=== PATIENT | male | born 2000 | race Caucasian/White ===

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

== ENCOUNTER 2022-11-08 03:30 | Emergency (ER) | payer OTHER, MEDICAID ==
[~2022-11-08] VITALS: Ht 172.7 cm; Wt 81.8 kg
[~2022-11-08 03:30] MED LIST: INSLISPI SC; INSU100I4 SC; OLAN5TAB2 PO; QUET50TA PO
[2022-11-08] MEDS ORDERED: METOCLOPRAMIDE HCL 5MG/ml INJ 2ml VIAL IV ONE (04:00)
[2022-11-08] MEDS ORDERED: MORPHINE SULFATE 4 MG/ML SYR/VIAL IV ONE ×2 (04:00→06:45)
[2022-11-08] MEDS ORDERED: diphenhdrAMINE HCL 50 MG/1 ML VL IV ONE (04:00)
[2022-11-08 04:26] LABS: Basophils # (auto) 0.1 10 ^3/uL (0-0.2); Basophils % (auto) 0.3 % (0.0-2.0); Eosinophils # (auto) 0 10 ^3/uL (0-0.8); Hematocrit 48.2 % (41.0-53.0); Lymphocytes # (auto) 1.1 10 ^3/uL (0.4-5.4); Lymphocytes % (auto) 5.2 % (10.0-50.0); Mean Corpuscular Hemoglobin 29.2 pg (28.0-32.0); Mean Corpuscular Hgb Conc. 33.2 g/dL (32.0-36.0); Mean Corpuscular Volume 87.9 fL (80.0-100.0); Monocytes # (auto) 1.5 10 ^3/uL (0-1.3); Monocytes % (auto) 7.3 % (0.0-12.0); Neutrophils # (auto) 17.6 10 ^3/uL (1.6-8.6); Neutrophils % (auto) 87.2 % (37.0-80.0); Red Blood Cells 5.48 10^6/uL (4.5-5.90); Red Cell Distribution Width 13.5 % (11.8-14.3); White Blood Cell 20.2 10^3/uL (4.4-10.8)
[2022-11-08 04:30] VITALS: RESP 19; O2SAT 97
[2022-11-08 04:42] LABS: Alanine Aminotransferase 43 U/L (7-40); Alkaline Phosphatase 100 U/L (46-116); Anion Gap 13 (5-15); BUN/Creatinine Ratio 11.3 (10.0-20.0); Blood Urea Nitrogen 13 mg/dL (9-23); Calcium 10.1 mg/dL (8.7-10.4); Carbon Dioxide 24 mmol/L (20-30); Chloride 103 mmol/L (98-107); Glucose 148 mg/dL (74-106); Lipase 33 U/L (12-53); Potassium 3.7 mmol/L (3.5-5.1); Sodium 140 mmol/L (136-145)
[2022-11-08 04:43] LABS: Albumin 5.3 g/dL (3.2-4.8); Aspartate Aminotransferase 29 U/L (13-40); Bilirubin, Total 0.6 mg/dL (0.2-1.0); Total Protein 8.3 g/dL (5.7-8.2)
[2022-11-08] MEDS ORDERED: ONDANSETRON HCL 4 MG/2 ML VIAL IV ONE (06:45)
[2022-11-08] MEDS ORDERED: PIPERACILLIN-TAZO 4.5GM 100 ML IV ONE (06:45)
[2022-11-08] MEDS ORDERED: SODIUM CHLORIDE 0.9% 1,000 ML IV ONE ×2 (06:45)
[2022-11-08 07:04] LABS: Base Excess -0.7 mmol/L (-2.0-2.0)
[2022-11-08 08:00] VITALS: PULSE 63; RESP 13; O2SAT 98
[2022-11-08 10:09] VITALS: BP 120/48; PULSE 78; RESP 16; TEMP 98; O2SAT 98
== END 2022-11-08 10:32 | disposition short-term general hospital (02) ==
LOC: EDBD 03:30 → ER 03:30
DX: K37 Unspecified appendicitis (principal); E11.9 Type 2 diabetes mellitus without complications; E87.3 Alkalosis; R10.84 Generalized abdominal pain; R11.2 Nausea with vomiting, unspecified; Z79.4 Long term (current) use of insulin; Z79.899 Other long term (current) drug therapy
CPT/HCPCS: 36415; 36600; 74150; 80053; 82805; 83690; 85025; 96365; 96366; 96375; 96376; 99285; J2270; J2405; J2543; J2765

== ENCOUNTER 2023-01-12 13:01 | Emergency (ER) | payer MEDICAID ==
[~2023-01-12] VITALS: Ht 172.7 cm; Wt 79.5 kg
[2023-01-12] MEDS ORDERED: SODIUM CHLORIDE 0.9% 1,000 ML IVB ONE (13:15)
[2023-01-12] MEDS ORDERED: MORPHINE SULFATE 4 MG/ML SYR/VIAL IV ONE (13:15)
[2023-01-12] MEDS ORDERED: PROCHLORPERAZINE EDISYLATE 5 MG/ML 2ML VIAL IV ONE (13:15)
[2023-01-12] MEDS ORDERED: PANTOPRAZOLE 40 MG/10 ML VIAL INJ IV ONE (13:15)
[2023-01-12 13:55] LABS: Basophils # (auto) 0 10 ^3/uL (0-0.2); Basophils % (auto) 0.2 % (0.0-2.0); Eosinophils # (auto) 0 10 ^3/uL (0-0.8)
[2023-01-12 13:57] LABS: Hematocrit 55.3 % (41.0-53.0); Lymphocytes # (auto) 1.6 10 ^3/uL (0.4-5.4); Lymphocytes % (auto) 6.5 % (10.0-50.0); Mean Corpuscular Hgb Conc. 32.6 g/dL (32.0-36.0); Monocytes # (auto) 1.3 10 ^3/uL (0-1.3); Monocytes % (auto) 5.4 % (0.0-12.0); Neutrophils % (auto) 87.9 % (37.0-80.0); Red Blood Cells 6.21 10^6/uL (4.5-5.90); Red Cell Distribution Width 13.2 % (11.8-14.3); White Blood Cell 23.9 10^3/uL (4.4-10.8)
[2023-01-12 14:16] LABS: Alanine Aminotransferase 22 U/L (7-40); Albumin 5.9 g/dL (3.2-4.8); Alkaline Phosphatase 87 U/L (46-116); Anion Gap 23 (5-15); Aspartate Aminotransferase 24 U/L (13-40); Blood Urea Nitrogen 14 mg/dL (9-23); Carbon Dioxide 17 mmol/L (20-30); Chloride 95 mmol/L (98-107); Glucose 181 mg/dL (74-106); Lipase 28 U/L (12-53); Potassium 4.2 mmol/L (3.5-5.1); Sodium 135 mmol/L (136-145); Total Protein 9.3 g/dL (5.7-8.2)
[2023-01-12] MEDS ORDERED: PIPERACILLIN-TAZOB 3.375GM 100 ML IV ONE (15:15)
[2023-01-12 15:33] LABS: Base Excess -10.8 mmol/L (-2.0-2.0)
[2023-01-12 17:32] LABS: COVID19 ANTIGEN SOFIA FIA NEGATIVE (NEGATIVE)
[2023-01-12 17:39] VITALS: BP 135/79; PULSE 73; RESP 19; TEMP 97.2; O2SAT 100
== END 2023-01-12 18:00 | disposition short-term general hospital (02) ==
LOC: EDBD 13:01 → ER 13:01
DX: K36 Other appendicitis (principal); R10.30 Lower abdominal pain, unspecified; R11.2 Nausea with vomiting, unspecified; E11.9 Type 2 diabetes mellitus without complications; F15.90 Other stimulant use, unspecified, uncomplicated; Z87.891 Personal history of nicotine dependence; Z79.899 Other long term (current) drug therapy; Z20.822 Contact with and (suspected) exposure to COVID-19
CPT/HCPCS: 36415; 36600; 74177; 80053; 82805; 83690; 85025; 87426; 96361; 96365; 96375; 99285; C9113; J0780; J2270; J2543; J7030; Q9967

== ENCOUNTER 2024-03-16 07:09 | Emergency (ER) | payer MEDICAID ==
[~2024-03-16] VITALS: Ht 175.3 cm; Wt 100.0 kg
--- NOTE | 2024-03-16 07:25 | ED.PDOC ---
GI ASSESSMENT HPI Comments 23-year-old male with PMHx Cannabinoid Hyperemesis Syndrome brought in by EMS presents with a chief complaint of abdominal pain, diaphoresis, nausea, and vomiting. Patient states that his pain is localized diffusely, nonradiating, rates his pain a 10/10, and describes as aching. Patient was given 8mg Zofran en route. Patient endorses smoking marijuana recently. Patient is also a Diabetic. No other symptoms or modifying factors present at this time. Chief Complaint: Abdominal Pain Time Seen by MD: 07:16 Primary Care Provider: Marcel Reviewed Notes: Medications, Allergies Allergies: Coded Allergies: NO KNOWN ALLERGIES (Unverified , 02/03/21) Home Meds Reported Medications Olanzapine (Zyprexa) 5 Mg Tab, 5 MG PO HS 11/12/21 Insulin Lispro (Human) (Humalog) 100 Unit/Ml Inj, SC 11/12/21 Quetiapine Fumerate (Seroquel) 50 Mg Tab, 75 MG PO HS 11/12/21 Insulin Lispro (Humalog Kwikpen) 100 Unit/Ml Inj, SC 11/12/21 Information Source: Patient Mode of Arrival: EMS Timing: Hours Duration: Since onset Prehospital treatment: Treatment (8mg Zofran) Quality: Aching Vomitus: Food Particles Severity: Severe Recent: None Recent Hx of: None Pain Location: Diffuse Past Medical History PAST MEDICAL HISTORY: DM Surgical History: Denies all surgeries Family History Family History: Unknown Social History Smoker: Other Alcohol: Occasionally Drugs: Marijuana Lives In: Home Constitutional: reports: diaphoresis; denies: chills, fatigue, fever, malaise, sweats, weakness, others EENTM: denies: blurred vision, double vision, ear bleeding, ear discharge, ear drainage, ear pain, ear ringing, eye pain, eye redness, hearing loss, mouth pain, mouth swelling, nasal discharge, nose bleeding, nose congestion, nose pain, photophobia, tearing, throat pain, throat swelling, voice changes, others Respiratory: denies: cough, hemoptysis, orthopnea, SOB at rest, shortness of breath, SOB with excertion, stridor, wheezing, others Cardiovascular: denies: chest pain, dizzy spells, diaphoresis, Dyspnea on exertion, edema, irregular heart beat, left arm pain, lightheadedness, palpitations, PND, syncope, others Gastrointestinal: reports: abdominal pain, nausea, vomiting; denies: abdomen distended, blood streaked bowels, constipated, diarrhea, dysphagia, difficulty swallowing, hematemesis, melena, poor appetite, poor fluid intake, rectal bleeding, rectal pain, others Genitourinary: denies: burning, dysuria, flank pain, frequency, hematuria, incontinence, penile discharge, penile sore, pain, testicle pain, testicle swelling, urgency, others Neurological: denies: dizziness, fainting, headache, left sided numbness, left sided weakness, numbness, paresthesia, pre-existing deficit, right sided numbness, right sided weakness, seizure, speech problems, tingling, tremors, weakness, others Musculoskeletal: denies: back pain, gout, joint pain, joint swelling, muscle pain, muscle stiffness, neck pain, others Integumetry: denies: bruises, change in color, change in hair/nails, dryness, laceration, lesions, lumps, rash, wounds, others Allergic/Immunocompromised: denies: Difficulty Healing, Frequent Infections, Hives, Itching, others Hematologic/Lymphatic: denies: anemia, blood clots, easy bleeding, easy bruising, swollen glands, others Endocrine: denies: excessive hunger, excessive sweating, excessive thirst, excessive urination, flushing, intolerance to cold, intolerance to heat, unexplained weight gain, unexplained weight loss, others Psychiatric: denies: anxiety, bipolar disorder, depression, hopeless, panic disorder, schizophrenia, sleepless, suicidal, others All Other Systems: Reviewed and Negative Physical Exam General Appearance: Normal, Severe Distress HEENT: Normal ENT Inspection, Pharynx Normal, TMs Normal Neck: Full Range of Motion, Non-Tender, Normal, Normal Inspection Respiratory: Chest Non-Tender, Lungs Clear, No Accessory Muscle Use, No Respiratory Distress, Normal Breath Sounds Cardiovascular: No Edema, No JVD, No Murmur, No Gallop, Normal Peripheral Pulses, Regular Rate/Rhythm Breast Exam: Deferred Gastrointestinal: Diffuse, No Pulsatile Mass, Normal Bowel Sounds, Tenderness Genitalia: Deferred Pelvic: Deferred Rectal: Deferred Extremities: No calf tenderness, Normal capillary refill, Normal inspection, Normal range of motion, Non-tender, No pedal edema Musculoskeletal : Apperance: Normal Neurologic: Alert, department helper II-XII nml as Tested, No Motor Deficits, Normal Affect, Normal Mood, No Sensory Deficits Cerebellar Function: Normal Reflexes: Normal Skin: Dry, Normal Color, Warm Lymphatic: No Adenopathy Was a procedure done? Was a procedure done?: No GI differential Dx Differential Diagnosis: Other Other Differential Diagnosis DKA, electrolyte disturbance, cannabinoid hyperemesis syndrome, hyperglycemia, gastroenteritis X-Ray, Labs, Meds, VS Vital Signs Date Time Temp Pulse Resp B/P (MAP) Pulse Ox O2 Delivery O2 Flow Rate FiO2 03/16/24 09:46 98.0 60 14 161/93 (115) 99 98.0 03/16/24 07:45 98.3 61 20 151/94 (113) 97 98.3 03/16/24 07:14 98.1 18 96 147/89 (108) 62 98.1 03/16/24 07:14 Room Air* 0 21 03/16/24 07:14 98.1 62 18 147/89 (108) 96 Lab Test 03/16/24 07:36 Range/Units White Blood Count 12.7 H 4.4-10.8 10^3/uL Red Blood Count 5.87 4.5-5.90 10^6/uL Hemoglobin 17.3 13.5-17.5 g/dL Hematocrit 51.3 41.0-53.0 % Mean Corpuscular Volume 87.5 80.0-100.0 fL Mean Corpuscular Hemoglobin 29.5 28.0-32.0 pg Mean Corpuscular Hemoglobin Concent 33.7 32.0-36.0 g/dL Red Cell Distribution Width 13.4 11.8-14.3 % Platelet Count 263 140-450 10^3/uL Mean Platelet Volume 10.1 6.9-10.8 fL Neutrophils (%) (Auto) 81.1 H 37.0-80.0 % Lymphocytes (%) (Auto) 10.7 10.0-50.0 % Monocytes (%) (Auto) 7.8 0.0-12.0 % Eosinophils (%) (Auto) 0.1 0.0-7.0 % Basophils (%) (Auto) 0.3 0.0-2.0 % Neutrophils # (Auto) 10.3 H 1.6-8.6 10 ^3/uL Lymphocytes # (Auto) 1.4 0.4-5.4 10 ^3/uL Monocytes # (Auto) 1.0 0-1.3 10 ^3/uL Eosinophils # (Auto) 0 0-0.8 10 ^3/uL Basophils # (Auto) 0 0-0.2 10 ^3/uL Nucleated Red Blood Cells 0.1 % Sodium Level 135 L 136-145 mmol/L Potassium Level 4.4 3.5-5.1 mmol/L Chloride Level 101 98-107 mmol/L Carbon Dioxide Level 20 20-31 mmol/L Anion Gap 14 5-15 Blood Urea Nitrogen 13 9-23 mg/dL Creatinine 1.23 0.700-1.30 mg/dL Glomerular Filtration Rate Calc 86 >90 mL/min BUN/Creatinine Ratio 10.6 10.0-20.0 Serum Glucose 272 H 74-106 mg/dL Calcium Level 10.5 H 8.7-10.4 mg/dL Total Bilirubin 0.7 0.2-1.0 mg/dL Aspartate Amino Transferase (AST) 27 13-40 U/L Alanine Aminotransferase (ALT) 33 7-40 U/L Alkaline Phosphatase 88 46-116 U/L Total Protein 8.4 H 5.7-8.2 g/dL Albumin 5.5 H 3.2-4.8 g/dL Lipase 29 12-53 U/L Beta-Hydroxybutyric Acid 0.758 H < 0.4 mmol/L Current Medications Medications (Trade) Dose Ordered Sig/Osvaldo Route Start Time Stop Time Status Last Admin Sodium Chloride 1,000 ml @ 1,000 mls/hr Q1H ONCE IVB 03/16/24 07:30 03/16/24 08:29 DC 03/16/24 07:37 Haloperidol Lactate (Haldol) 5 mg ONCE ONCE IM 03/16/24 07:30 03/16/24 07:31 DC 03/16/24 07:45 23-year-old male presents here status post can avoid hyperemesis syndrome. He was driving on my initial evaluation. And was diaphoretic. I have given him 1 L of normal saline and Haldol in the ER. Blood work was done which demonstrates no WBC count largely normal CMP except for a creatinine of 1.23 and elevated glucose of 272. Slight elevation in beta hydroxybutyrate of 0.758. At this time strongly advised patient to stop using marijuana. Advised patient to return back to the ER if symptoms worsen or persist. On re-evaluation at 10:45 a.m. patient is no longer vomiting no longer diaphoretic and feeling much better. Time of 1ST Reevaluation: 07:46 Reevaluation 1ST: Unchanged Time of 2ND Reevaluation: 10:43 Reevaluation 2ND: Improved Patient Education/Counseling: Diagnosis, Treatment, Prognosis Family Education/Counseling: Diagnosis, Treatment, Prognosis Departure 1 Departure Time of Disposition: 10:46 Impression: Primary Impression: Cannabinoid hyperemesis syndrome Additional Impressions: Hyperglycemia Dehydration Disposition: 01 HOME / SELF CARE / HOMELESS Condition: Fair Additional Instructions: Follow up with the primary care physician in 2-3 days. Return to the ER if symptoms worsen or persist. Discharged With: Self Critical Care Note Critical Care Time?: No Stability Stability form required: No I personally scribed for KRISH BECK MD ([email or web address]) on 03/16/24 at 07:25. Electronically submitted by Helio Zabala ([email or web address]). KRISH BECK MD Mar 16, 2024 07:25
[2024-03-16] MEDS: SODIUM CHLORIDE 0.9% 1,000 ML IVB ONE (07:37)
[2024-03-16] MEDS: HALOPERIDOL LACTATE 5 MG/ML INJ VIAL IM ONE (07:45)
[2024-03-16 08:15] LABS: Basophils # (auto) 0 10 ^3/uL (0-0.2); Basophils % (auto) 0.3 % (0.0-2.0); Eosinophils # (auto) 0 10 ^3/uL (0-0.8); Eosinophils % (auto) 0.1 % (0.0-7.0); Hematocrit 51.3 % (41.0-53.0); Hemoglobin 17.3 g/dL (13.5-17.5); Lymphocytes # (auto) 1.4 10 ^3/uL (0.4-5.4); Lymphocytes % (auto) 10.7 % (10.0-50.0); Mean Corpuscular Hemoglobin 29.5 pg (28.0-32.0); Mean Corpuscular Hgb Conc. 33.7 g/dL (32.0-36.0); Mean Corpuscular Volume 87.5 fL (80.0-100.0); Monocytes % (auto) 7.8 % (0.0-12.0); Neutrophils # (auto) 10.3 10 ^3/uL (1.6-8.6); Neutrophils % (auto) 81.1 % (37.0-80.0); Nucleated Red Blood Cells % 0.1 %; Platelet Count (auto) 263 10^3/uL (140-450); Red Blood Cells 5.87 10^6/uL (4.5-5.90); Red Cell Distribution Width 13.4 % (11.8-14.3); White Blood Cell 12.7 10^3/uL (4.4-10.8)
[2024-03-16 08:19] LABS: Alanine Aminotransferase 33 U/L (7-40); Alkaline Phosphatase 88 U/L (46-116); Anion Gap 14 (5-15); Aspartate Aminotransferase 27 U/L (13-40); BUN/Creatinine Ratio 10.6 (10.0-20.0); Blood Urea Nitrogen 13 mg/dL (9-23); Carbon Dioxide 20 mmol/L (20-31); Chloride 101 mmol/L (98-107); Potassium 4.4 mmol/L (3.5-5.1)
[2024-03-16 08:20] LABS: Bilirubin, Total 0.7 mg/dL (0.2-1.0)
[2024-03-16 08:32] LABS: Albumin 5.5 g/dL (3.2-4.8); Calcium 10.5 mg/dL (8.7-10.4); Glucose 272 mg/dL (74-106); Sodium 135 mmol/L (136-145); Total Protein 8.4 g/dL (5.7-8.2)
[2024-03-16 09:02] LABS: Lipase 29 U/L (12-53)
[2024-03-16] MEDS: SODIUM CHLORIDE 0.9% 1,000 ML IV ONE (10:54)
[2024-03-16 11:07] VITALS: BP 150/64; PULSE 63; RESP 18; TEMP 98.1; O2SAT 98
== END 2024-03-16 11:52 | disposition home or self-care (01) ==
LOC: EDBD 07:09 → ER 07:09
DX: F12.90 Cannabis use, unspecified, uncomplicated (principal); E11.65 Type 2 diabetes mellitus with hyperglycemia; E86.0 Dehydration; Z79.899 Other long term (current) drug therapy
CPT/HCPCS: 36415; 80053; 82010; 83690; 85025; 96360; 96361; 96372; 99283; J1630; J7030

== ENCOUNTER 2024-10-19 07:34 | Inpatient (IN) | payer MEDICAID ==
[~2024-10-19] VITALS: Ht 172.7 cm; Wt 83.5 kg
[2024-10-19] VITALS (7 sets, daily range): BP systolic 111–153; BP diastolic 52–85; PULSE 50–90; RESP 8–96; TEMP 97.8–98.8; O2SAT 94–97
--- NOTE | 2024-10-19 08:00 | ED.PDOC ---
GI ASSESSMENT HPI Comments 23 y.o male with PMHx of DM, presents to the ED via EMS for a chief complaint of nausea and vomiting that started this morning around 0600. Patient mentions trying thc gummies last night and has a hx of marijuana use with prior visit to the ER for marijuana induced nausea and vomiting. Patient denies any abdominal pain, fever, chills, hematemesis Time Seen by MD: 17:50 Primary Care Provider: Marcel Reviewed Notes: Nurses Notes, [employer] Scientist Notes, Medications, Allergies Allergies: Coded Allergies: NO KNOWN ALLERGIES (Unverified , 02/03/21) Home Meds Reported Medications Olanzapine (Zyprexa) 5 Mg Tab, 5 MG PO HS 11/12/21 Insulin Lispro (Human) (Humalog) 100 Unit/Ml Inj, SC 11/12/21 Quetiapine Fumerate (Seroquel) 50 Mg Tab, 75 MG PO HS 11/12/21 Insulin Lispro (Humalog Kwikpen) 100 Unit/Ml Inj, SC 11/12/21 Information Source: Patient, Emergency Med Personnel Mode of Arrival: EMS Timing: Hours Duration: Since onset Quality: None Vomitus: Bilious Stool: Normal Severity: Moderate Recent: Other Recent Hx of: None Pain Location: None Modifying Factors: Nothing Associated sign and symptoms: Nausea, Vomiting Past Medical History PAST MEDICAL HISTORY: DM Surgical History: Denies all surgeries Family History Family History: Unknown Social History Smoker: Non-Smoker, Other Alcohol: Occasionally Drugs: Marijuana Lives In: Home Constitutional: denies: chills, diaphoresis, fatigue, fever, malaise, sweats, weakness, others EENTM: denies: blurred vision, double vision, ear bleeding, ear discharge, ear drainage, ear pain, ear ringing, eye pain, eye redness, hearing loss, mouth pain, mouth swelling, nasal discharge, nose bleeding, nose congestion, nose pain, photophobia, tearing, throat pain, throat swelling, voice changes, others Respiratory: denies: cough, hemoptysis, orthopnea, SOB at rest, shortness of breath, SOB with excertion, stridor, wheezing, others Cardiovascular: denies: chest pain, dizzy spells, diaphoresis, Dyspnea on exertion, edema, irregular heart beat, left arm pain, lightheadedness, palpitations, PND, syncope, others Gastrointestinal: reports: nausea, vomiting; denies: abdomen distended, abdominal pain, blood streaked bowels, constipated, diarrhea, dysphagia, difficulty swallowing, hematemesis, melena, poor appetite, poor fluid intake, rectal bleeding, rectal pain, others Genitourinary: denies: burning, dysuria, flank pain, frequency, hematuria, incontinence, penile discharge, penile sore, pain, testicle pain, testicle swelling, urgency, others Neurological: denies: dizziness, fainting, headache, left sided numbness, left sided weakness, numbness, paresthesia, pre-existing deficit, right sided numbness, right sided weakness, seizure, speech problems, tingling, tremors, weakness, others Musculoskeletal: denies: back pain, gout, joint pain, joint swelling, muscle pain, muscle stiffness, neck pain, others Integumetry: denies: bruises, change in color, change in hair/nails, dryness, laceration, lesions, lumps, rash, wounds, others Allergic/Immunocompromised: denies: Difficulty Healing, Frequent Infections, Hives, Itching, others Hematologic/Lymphatic: denies: anemia, blood clots, easy bleeding, easy bruising, swollen glands, others Endocrine: denies: excessive hunger, excessive sweating, excessive thirst, excessive urination, flushing, intolerance to cold, intolerance to heat, unexplained weight gain, unexplained weight loss, others Psychiatric: denies: anxiety, bipolar disorder, depression, hopeless, panic disorder, schizophrenia, sleepless, suicidal, others All Other Systems: Reviewed and Negative Physical Exam General Appearance: Moderate Distress HEENT: Normal ENT Inspection, Pharynx Normal, TMs Normal Neck: Full Range of Motion, Non-Tender, Normal, Normal Inspection Respiratory: Chest Non-Tender, Lungs Clear, No Accessory Muscle Use, No Respiratory Distress, Normal Breath Sounds Cardiovascular: No Edema, No JVD, No Murmur, No Gallop, Normal Peripheral Pulses, Regular Rate/Rhythm Breast Exam: Deferred Gastrointestinal: No Organomegaly, Non Tender, No Pulsatile Mass, Normal Bowel Sounds, Soft Genitalia: Deferred Pelvic: Deferred Rectal: Deferred Extremities: No calf tenderness, Normal capillary refill, Normal inspection, Normal range of motion, Non-tender, No pedal edema Musculoskeletal : Apperance: Normal Neurologic: Alert, animal care giver II-XII nml as Tested, No Motor Deficits, Normal Affect, Normal Mood, No Sensory Deficits Cerebellar Function: Normal Reflexes: Normal Skin: Dry, Normal Color, Warm Peripheral Pulses: 3+ Radial (R), 3+ Radial (L) Lymphatic: No Adenopathy Was a procedure done? Was a procedure done?: No GI differential Dx Differential Diagnosis: Constipation, Diverticular disease, Esophagitis, Gastritis/PUD, Gastroenteritis, Dehydration, Diabetes/ DKA, Drug toxicity, Electrolyte Imbalance, Viral X-Ray, Labs, Meds, VS Vital Signs Date Time Temp Pulse Resp B/P (MAP) Pulse Ox O2 Delivery O2 Flow Rate FiO2 10/19/24 12:00 Room Air* 0 21 10/19/24 11:45 98.1 57 16 146/78 (100) 98 98.1 10/19/24 10:35 98.1 43 16 143/84 (103) 99 98.1 10/19/24 09:53 84 22 96 Room Air* 0 21 10/19/24 09:44 75 18 147/68 10/19/24 08:10 98.7 75 18 147/68 98 98.7 Lab Test 10/19/24 15:57 10/19/24 13:56 10/19/24 11:47 10/19/24 08:11 Range/Units POC Glucose 176 H 230 H 226 H 70-106 mg/dl White Blood Count 18.1 H 4.4-10.8 10^3/uL Red Blood Count 5.66 4.5-5.90 10^6/uL Hemoglobin 16.8 13.5-17.5 g/dL Hematocrit 48.7 41.0-53.0 % Mean Corpuscular Volume 86.1 80.0-100.0 fL Mean Corpuscular Hemoglobin 29.8 28.0-32.0 pg Mean Corpuscular Hemoglobin Concent 34.6 32.0-36.0 g/dL Red Cell Distribution Width 12.7 11.8-14.3 % Platelet Count 261 140-450 10^3/uL Mean Platelet Volume 9.5 6.9-10.8 fL Neutrophils (%) (Auto) 79.8 37.0-80.0 % Lymphocytes (%) (Auto) 10.7 10.0-50.0 % Monocytes (%) (Auto) 8.9 0.0-12.0 % Eosinophils (%) (Auto) 0.2 0.0-7.0 % Basophils (%) (Auto) 0.4 0.0-2.0 % Neutrophils # (Auto) 14.4 H 1.6-8.6 10 ^3/uL Lymphocytes # (Auto) 1.9 0.4-5.4 10 ^3/uL Monocytes # (Auto) 1.6 H 0-1.3 10 ^3/uL Eosinophils # (Auto) 0 0-0.8 10 ^3/uL Basophils # (Auto) 0.1 0-0.2 10 ^3/uL Nucleated Red Blood Cells 0.0 % Sodium Level 139 136-145 mmol/L Potassium Level 3.5 3.5-5.1 mmol/L Chloride Level 101 98-107 mmol/L Carbon Dioxide Level 22 20-31 mmol/L Anion Gap 16 H 5-15 Blood Urea Nitrogen 11 9-23 mg/dL Creatinine 1.25 0.700-1.30 mg/dL Glomerular Filtration Rate Calc 84 >90 mL/min BUN/Creatinine Ratio 8.8 L 10.0-20.0 Serum Glucose 220 H 74-106 mg/dL Calcium Level 10.3 8.7-10.4 mg/dL Beta-Hydroxybutyric Acid 0.590 H < 0.4 mmol/L Current Medications Medications (Trade) Dose Ordered Sig/Osvaldo Route Start Time Stop Time Status Last Admin Sodium Chloride 1,000 ml @ 1,000 mls/hr Q1H ONCE IV 10/19/24 08:00 10/19/24 08:59 DC 10/19/24 09:45 Sodium Chloride 1,000 ml @ 150 mls/hr Q6H40M ONCE IV 10/19/24 08:00 10/19/24 14:39 DC 10/19/24 09:45 Haloperidol Lactate (Haldol) 5 mg ONCE ONCE IM 10/19/24 08:00 10/19/24 08:01 DC 10/19/24 09:43 Ondansetron HCl (Zofran) 4 mg ONCE ONCE IV 10/19/24 08:00 10/19/24 08:01 DC 10/19/24 09:45 Morphine Sulfate 4 mg ONCE ONCE IV 10/19/24 08:00 10/19/24 08:01 DC 10/19/24 09:44 Sodium Chloride 1,000 ml @ 1,000 mls/hr Q1H ONCE IV 10/19/24 10:15 10/19/24 11:14 DC 10/19/24 11:45 Insulin Human (Reg)/Sodium Chloride 100 ml @ 0.5 mls/hr Q24H IV 10/19/24 10:15 10/19/24 12:09 Diagnostic Test (Pha) (Accu-Chek Comfort Curve T) 1 strip Q90MIN 10/19/24 10:30 10/19/24 16:33 Potassium Chloride (Klor-Con Tablet) 20 meq ONCE ONCE PO 10/19/24 11:15 10/19/24 11:16 DC 10/19/24 14:41 Patient alert. Complaining of nausea vomiting. History of diabetes. Vitals stable. Establish intravenous access. Was given fluids Was given morphine. Was given Zofran. History of anxiety. Was given Haldol. He does use marijuana gummies. Explained to the patient. Continue monitoring. Rod as not responded when more than 6 hours. Patient will be admitted in this hospital by our hospitalist. [facility] approved inpatient admission [id number]. Time of 1ST Reevaluation: 07:57 Reevaluation 1ST: Unchanged Patient Education/Counseling: Diagnosis, Treatment, Prognosis Family Education/Counseling: No Family Present SEPSIS Sepsis Screen Physician Orders Urinalysis (10/19/24 07:55) Insulin Drip 100 Unit/100ml (Myxredlin 1 (10/19/24 10:15) Glucose Blood (Accu-Chek Comfort Curve T (10/19/24 10:30) D/C All Diabetic Medications (10/19/24 10:06) Insulin Drip Protocol (10/19/24 10:06) Dextrose 50% Syringe (10/19/24 10:15) Sodium Chloride 0.9% (10/19/24 16:45) Vital Signs Date Time Temp Pulse Resp B/P (MAP) Pulse Ox O2 Delivery O2 Flow Rate FiO2 10/19/24 12:00 Room Air* 0 21 10/19/24 11:45 98.1 57 16 146/78 (100) 98 98.1 10/19/24 10:35 98.1 43 16 143/84 (103) 99 98.1 10/19/24 09:53 84 22 96 Room Air* 0 21 10/19/24 09:44 75 18 147/68 10/19/24 08:10 98.7 75 18 147/68 98 98.7 Laboratory Tests Test 10/19/24 08:11 White Blood Count 18.1 10^3/uL (4.4-10.8) H Medications Medications Dose Ordered Sig/Osvaldo Route Start Time Stop Time Status Last Admin Dose Admin Diagnostic Test (Pha) 1 strip Q90MIN 10/19/24 10:30 10/19/24 16:33 Haloperidol Lactate 5 mg ONCE ONCE IM 10/19/24 08:00 10/19/24 08:01 DC 10/19/24 09:43 Insulin Human (Reg)/Sodium Chloride 100 ml @ 0.5 mls/hr Q24H IV 10/19/24 10:15 10/19/24 12:09 Morphine Sulfate 4 mg ONCE ONCE IV 10/19/24 08:00 10/19/24 08:01 DC 10/19/24 09:44 Ondansetron HCl 4 mg ONCE ONCE IV 10/19/24 08:00 10/19/24 08:01 DC 10/19/24 09:45 Potassium Chloride 20 meq ONCE ONCE PO 10/19/24 11:15 10/19/24 11:16 DC 10/19/24 14:41 Sodium Chloride 1,000 ml @ 150 mls/hr Q6H40M ONCE IV 10/19/24 08:00 10/19/24 14:39 DC 10/19/24 09:45 Sodium Chloride 1,000 ml @ 1,000 mls/hr Q1H ONCE IV 10/19/24 08:00 10/19/24 08:59 DC 10/19/24 09:45 Sodium Chloride 1,000 ml @ 1,000 mls/hr Q1H ONCE IV 10/19/24 10:15 10/19/24 11:14 DC 10/19/24 11:45 Departure 1 Departure Time of Disposition: 08:02 Impression: Primary Impression: DKA (diabetic ketoacidosis) Qualified Codes: E13.10 - Other specified diabetes mellitus with ketoacidosis without coma Additional Impressions: Cannabinoid hyperemesis syndrome Intractable nausea and vomiting Disposition: ADMITTED INPATIENT Admit to: Med Surg Condition: Guarded Critical Care Note Critical Care Time?: No Stability Stability form required: No I personally scribed for SYLVAIN CLARK MD ([email or web address]) on 10/19/24 at 08:00. Electronically submitted by Melinda Kraft ([facility]). SYLVAIN CLARK MD Oct 19, 2024 08:00
[2024-10-19 08:50] LABS: Hematocrit 48.7 % (41.0-53.0); Hemoglobin 16.8 g/dL (13.5-17.5); Mean Corpuscular Hemoglobin 29.8 pg (28.0-32.0); Mean Corpuscular Volume 86.1 fL (80.0-100.0); Nucleated Red Blood Cells % 0.0 %
[2024-10-19 09:13] LABS: Chloride 101 mmol/L (98-107); Potassium 3.5 mmol/L (3.5-5.1); Sodium 139 mmol/L (136-145)
[2024-10-19 09:14] LABS: Anion Gap 16 (5-15); Calcium 10.3 mg/dL (8.7-10.4); Carbon Dioxide 22 mmol/L (20-31)
[2024-10-19 09:19] LABS: BUN/Creatinine Ratio 8.8 (10.0-20.0); Blood Urea Nitrogen 11 mg/dL (9-23)
[2024-10-19 09:20] LABS: Glucose 220 mg/dL (74-106)
[2024-10-19] MEDS: HALOPERIDOL LACTATE 5 MG/ML INJ VIAL IM ONE (09:43)
[2024-10-19] MEDS: MORPHINE SULFATE 4 MG/ML SYR/VIAL IV ONE (09:44)
[2024-10-19] MEDS: SODIUM CHLORIDE 0.9% 1,000 ML IV ONE ×5 (09:45→18:15)
[2024-10-19] MEDS: ONDANSETRON HCL 4 MG/2 ML VIAL IV ONE (09:45)
[2024-10-19] MEDS ORDERED: DEXTROSE (50%) 50ML SYRG IV PRN (10:15)
[2024-10-19] MEDS: ACCU-CHEK COMFORT CURVE STRIP VI SCH (11:50)
[2024-10-19] MEDS: INSULIN DRIP 100 UNIT/100ML 100 ML IV SCH (12:09)
[2024-10-19] MEDS: POTASSIUM CHL 20 Meq TABLET PO ONE (14:41)
--- NOTE | 2024-10-19 17:39 | DVHHP2 ---
Admitting Diagnosis: Nausea and vomiting History of Present Illness 23 y.o male with PMHx of DM, presents to the ED via EMS for a chief complaint of nausea and vomiting that started this morning around 0600. Patient mentions trying thc gummies last night and has a hx of marijuana use with prior visit to the ER for marijuana induced nausea and vomiting. Patient denies any abdominal pain, fever, chills, hematemesis PAST MEDICAL HISTORY: DM Surgical History: Denies all surgeries Family History Family History: Unknown Social History Smoker: Non-Smoker, Other Alcohol: Occasionally Drugs: Marijuana Lives In: Home Patient Family History: Patient reports no known family medical history. Allergies: Coded Allergies: NO KNOWN ALLERGIES (Unverified , 02/03/21) Home Meds Reported Medications Olanzapine (Zyprexa) 5 Mg Tab, 5 MG PO HS 11/12/21 Insulin Lispro (Human) (Humalog) 100 Unit/Ml Inj, SC 11/12/21 Quetiapine Fumerate (Seroquel) 50 Mg Tab, 75 MG PO HS 11/12/21 Insulin Lispro (Humalog Kwikpen) 100 Unit/Ml Inj, SC 11/12/21 Current Medications Current Medications Medications (Trade) Dose Ordered Sig/Osvaldo Route PRN Reason Start Time Stop Time Status Last Admin Insulin Human (Reg)/Sodium Chloride 100 ml @ 0.5 mls/hr Q24H IV 10/19/24 10:15 10/19/24 12:09 Diagnostic Test (Pha) (Accu-Chek Comfort Curve T) 1 strip Q90MIN 10/19/24 10:30 10/19/24 16:33 Dextrose 50 ml PRN PRN IV BG LESS Than 70 AND CALL MD 10/19/24 10:15 Vital Signs Vital Signs Date Time Temp Pulse Resp B/P (MAP) Pulse Ox O2 Delivery O2 Flow Rate FiO2 10/19/24 16:00 63 17 154/94 (114) 97 10/19/24 12:30 98.1 98.1 10/19/24 12:00 Room Air* 0 21 Physical Exam Generally-23 years old male, well nourished well developed. Resting in bed. No apparent distress HEENT-atraumatic normocephalic Heart-sinus tachycardic Lungs decreased breath sounds bilaterally Abdomen soft nontender nondistended Musculoskeletal-no edema cyanosis Neuro-asleep, arousable to verbal, oriented to person place nine. Strength and sensation intact SEPSIS Sepsis Screen Date sepsis recognized/suspect: Oct 19, 2024 Time Sepsis recognized/suspect: 114 Recent Procedure: No On Antibiotic Therapy: No Respiratory Rate >20: No Heart Rate >90: No Temp<36 C (96.8 F) or >38.3 C: No SBP <90 or MAP <65 mmHG: No New Acute Mental Status Change: No Is the patient on CPAP, BIPAP,: No Physician Orders Urinalysis (10/19/24 07:55) Insulin Drip 100 Unit/100ml (Myxredlin 1 (10/19/24 10:15) Glucose Blood (Accu-Chek Comfort Curve T (10/19/24 10:30) D/C All Diabetic Medications (10/19/24 10:06) Insulin Drip Protocol (10/19/24 10:06) Dextrose 50% Syringe (10/19/24 10:15) Sodium Chloride 0.9% (10/19/24 16:45) Vital Signs Date Time Temp Pulse Resp B/P (MAP) Pulse Ox O2 Delivery O2 Flow Rate FiO2 10/19/24 16:00 63 17 154/94 (114) 97 10/19/24 15:30 52 20 155/89 (111) 97 10/19/24 15:00 48 19 149/80 (103) 98 10/19/24 14:30 48 19 149/80 (103) 97 10/19/24 14:00 50 16 144/85 (104) 98 10/19/24 13:30 52 20 144/85 (104) 98 10/19/24 13:00 51 21 146/78 (100) 98 10/19/24 12:30 98.1 57 16 146/78 (100) 98 98.1 10/19/24 12:00 Room Air* 0 21 10/19/24 12:00 98.1 57 16 146/78 (100) 98 98.1 10/19/24 11:45 98.1 57 16 146/78 (100) 98 98.1 10/19/24 10:35 98.1 43 16 143/84 (103) 99 98.1 10/19/24 09:53 84 22 96 Room Air* 0 21 10/19/24 09:44 75 18 147/68 8/30/25 08:10 98.7 75 18 147/68 98 98.7 Laboratory Tests Test 10/19/24 08:11 White Blood Count 18.1 10^3/uL (4.4-10.8) H Medications Medications Dose Ordered Sig/Osvaldo Route Start Time Stop Time Status Last Admin Dose Admin Diagnostic Test (Pha) 1 strip Q90MIN 10/19/24 10:30 10/19/24 16:33 Haloperidol Lactate 5 mg ONCE ONCE IM 10/19/24 08:00 10/19/24 08:01 DC 10/19/24 09:43 Insulin Human (Reg)/Sodium Chloride 100 ml @ 0.5 mls/hr Q24H IV 10/19/24 10:15 10/19/24 12:09 Morphine Sulfate 4 mg ONCE ONCE IV 10/19/24 08:00 10/19/24 08:01 DC 10/19/24 09:44 Ondansetron HCl 4 mg ONCE ONCE IV 10/19/24 08:00 10/19/24 08:01 DC 10/19/24 09:45 Potassium Chloride 20 meq ONCE ONCE PO 10/19/24 11:15 10/19/24 11:16 DC 10/19/24 14:41 Sodium Chloride 1,000 ml @ 150 mls/hr Q6H40M ONCE IV 10/19/24 08:00 10/19/24 14:39 DC 10/19/24 09:45 Sodium Chloride 1,000 ml @ 1,000 mls/hr Q1H ONCE IV 10/19/24 08:00 10/19/24 08:59 DC 10/19/24 09:45 Sodium Chloride 1,000 ml @ 1,000 mls/hr Q1H ONCE IV 10/19/24 10:15 10/19/24 11:14 DC 10/19/24 11:45 Sodium Chloride 1,000 ml @ 1,000 mls/hr Q1H ONCE IV 10/19/24 16:45 10/19/24 17:44 10/19/24 16:55 Results Labs Test 10/19/24 16:36 10/19/24 12:00 10/19/24 08:11 Range/Units POC Glucose 176 H 70-106 mg/dl White Blood Count 18.1 H 4.4-10.8 10^3/uL Red Blood Count 5.66 4.5-5.90 10^6/uL Hemoglobin 16.8 13.5-17.5 g/dL Hematocrit 48.7 41.0-53.0 % Mean Corpuscular Volume 86.1 80.0-100.0 fL Mean Corpuscular Hemoglobin 29.8 28.0-32.0 pg Mean Corpuscular Hemoglobin Concent 34.6 32.0-36.0 g/dL Red Cell Distribution Width 12.7 11.8-14.3 % Platelet Count 261 140-450 10^3/uL Mean Platelet Volume 9.5 6.9-10.8 fL Neutrophils (%) (Auto) 79.8 37.0-80.0 % Lymphocytes (%) (Auto) 10.7 10.0-50.0 % Monocytes (%) (Auto) 8.9 0.0-12.0 % Eosinophils (%) (Auto) 0.2 0.0-7.0 % Basophils (%) (Auto) 0.4 0.0-2.0 % Neutrophils # (Auto) 14.4 H 1.6-8.6 10 ^3/uL Lymphocytes # (Auto) 1.9 0.4-5.4 10 ^3/uL Monocytes # (Auto) 1.6 H 0-1.3 10 ^3/uL Eosinophils # (Auto) 0 0-0.8 10 ^3/uL Basophils # (Auto) 0.1 0-0.2 10 ^3/uL Nucleated Red Blood Cells 0.0 % Sodium Level 139 136-145 mmol/L Potassium Level 3.5 3.5-5.1 mmol/L Chloride Level 101 98-107 mmol/L Carbon Dioxide Level 22 20-31 mmol/L Anion Gap 16 H 5-15 Blood Urea Nitrogen 11 9-23 mg/dL Creatinine 1.25 0.700-1.30 mg/dL Glomerular Filtration Rate Calc 84 >90 mL/min BUN/Creatinine Ratio 8.8 L 10.0-20.0 Serum Glucose 220 H 74-106 mg/dL Calcium Level 10.3 8.7-10.4 mg/dL Beta-Hydroxybutyric Acid 0.590 H < 0.4 mmol/L Primary Diagnosis Cannabinoid hyperemesis Type 1 diabetes ketoacidosis Plan IV fluids Antiemetic Pain control Insulin drip in ED for anion gap and hyperglycemia and elevated beta hydroxybutyrate Patient insulin pump is number function. Recommended the patient to have family bring insulin pump to resume when anion gap is closed recommended to avoid thc use full code lovenox for dvt ppx no gi ppx needed low carb diet Plan discussed with: Patient Problems List: (1) Cannabinoid hyperemesis syndrome Status: Acute (2) Intractable nausea and vomiting Status: Acute (3) DKA (diabetic ketoacidosis) Status: Acute Date of Service: Oct 19, 2024 Billing Provider: KENA DOWNING MD Common Visit Codes: [id number] CARE 30-74 MIN KENA DOWNING MD Oct 19, 2024 17:39
[2024-10-19 17:44] LABS: Urine Budding Yeast MODERATE /hpf (None Seen); Urine Protein, UAD 1+ (Negative)
[2024-10-19] MEDS ORDERED: ACETAMINOPHEN 325 MG TAB PO PRN (17:45)
[2024-10-19] MEDS ORDERED: DOCUSATE SOD 100 MG CAP PO PRN (17:45)
[2024-10-19 19:08] LABS: Chloride 106 mmol/L (98-107); Potassium 4.5 mmol/L (3.5-5.1); Sodium 141 mmol/L (136-145)
[2024-10-19 19:09] LABS: Anion Gap 12 (5-15); Carbon Dioxide 23 mmol/L (20-31)
[2024-10-19 19:10] LABS: Calcium 9.0 mg/dL (8.7-10.4)
[2024-10-19 19:15] LABS: BUN/Creatinine Ratio 7.8 (10.0-20.0); Blood Urea Nitrogen 7 mg/dL (9-23); Glucose 151 mg/dL (74-106)
[2024-10-19] MEDS: SODIUM CHLOR 0.9% PF (SALINE LOCK) 10ML VIAL/SYR IV SCH (22:00)
[2024-10-19] MEDS: ONDANSETRON HCL 4 MG/2 ML VIAL IV PRN (23:15)
[2024-10-19 23:54] LABS: Chloride 105 mmol/L (98-107); Potassium 3.9 mmol/L (3.5-5.1); Sodium 139 mmol/L (136-145)
[2024-10-19 23:55] LABS: Anion Gap 13 (5-15); Calcium 9.3 mg/dL (8.7-10.4); Carbon Dioxide 21 mmol/L (20-31)
[2024-10-20] VITALS (33 sets, daily range): BP systolic 100–165; BP diastolic 54–105; PULSE 46–100; RESP 8–24; TEMP 97.9–98.5; O2SAT 93–100
[2024-10-20] LABS: BUN/Creatinine Ratio 6.8 (10.0-20.0)
[2024-10-20 00:02] LABS: Blood Urea Nitrogen 6 mg/dL (9-23); Glucose 163 mg/dL (74-106)
[2024-10-20] MEDS: HYDROcodone-ACET 5/325MG TAB PO PRN (02:28)
[2024-10-20 06:58] LABS: Hematocrit 42.7 % (41.0-53.0); Hemoglobin 14.8 g/dL (13.5-17.5); Mean Corpuscular Hemoglobin 29.8 pg (28.0-32.0); Mean Corpuscular Volume 86.2 fL (80.0-100.0); Nucleated Red Blood Cells % 0.0 %
[2024-10-20 07:07] LABS: Anion Gap 9 (5-15); Carbon Dioxide 23 mmol/L (20-31); Chloride 107 mmol/L (98-107); Potassium 3.7 mmol/L (3.5-5.1); Sodium 139 mmol/L (136-145)
[2024-10-20 07:08] LABS: Calcium 9.1 mg/dL (8.7-10.4)
[2024-10-20 07:13] LABS: BUN/Creatinine Ratio 8.3 (10.0-20.0)
[2024-10-20 07:32] LABS: Blood Urea Nitrogen 7 mg/dL (9-23); Glucose 150 mg/dL (74-106)
[2024-10-20] MEDS: SODIUM CHLORIDE 0.9% 1,000 ML IV SCH (09:00)
[2024-10-20] MEDS: ACCU-CHEK COMFORT CURVE STRIP VI SCH ×2 (10:00→17:23)
[2024-10-20] MEDS: INSULIN LANTUS (GLARGINE) 1 /0.01ml (100units/ml) SC ONE ×2 (10:15→14:34)
[2024-10-20] MEDS ORDERED: InsuLIN REG 1unit/0.01ml Soln (100units/ml) SC SCH ×2 (10:15→12:00)
[2024-10-20] MEDS: PANTOPRAZOLE 40 MG/10 ML VIAL INJ IV SCH (10:48)
[2024-10-20] MEDS: ENOXAPARIN SOD 40 MG/0.4 ML SYRINGE SC SCH (10:48)
[2024-10-20 12:02] LABS: Sodium 141 mmol/L (136-145)
[2024-10-20 12:03] LABS: Anion Gap 13 (5-15); Calcium 9.3 mg/dL (8.7-10.4); Carbon Dioxide 20 mmol/L (20-31)
[2024-10-20 12:05] LABS: Chloride 108 mmol/L (98-107); Potassium 2.9 mmol/L (3.5-5.1)
[2024-10-20 12:08] LABS: BUN/Creatinine Ratio 6.5 (10.0-20.0); Blood Urea Nitrogen 6 mg/dL (9-23); Glucose 157 mg/dL (74-106)
--- NOTE | 2024-10-20 13:13 | DVHPN2 ---
Assessment/Plan Assessment/Plan Subjective History of Present Illness Ferdinand Randolph, a 23-year-old male with type 1 diabetes, presented to the ED with nausea and vomiting after consuming a THC gummy. He has a history of m arijuana use and cyclic vomiting syndrome (CHS). The patient reports experiencing nausea and vomiting, which he believes may be related to a CHS episode. He notes that haloperidol has been helpful in managing these symptoms in the past. Ferdinand also mentions having "a little diarrhea, but not bad," occurring twice. He denies any recent travel or exposure to individuals with similar symptoms, though he mentions someone in his household had a cough recently. Regarding his diabetes management, Ferdinand uses an Omnipod insulin pump at home. He does not take any long-acting insulin. He last saw his manager validation, whose last name he believes is Swapnil, a few months ago. The patient reports occasional use of cocaine, occurring every few months. He also uses nicotine through vaping and regularly consumes marijuana. Ferdinand denies use of heroin, meth, or alcohol. Objective Physical Examination General: Patient is awake and alert. Urinary: Patient reports feeling like he has to urinate but is unable to do so. abdomen soft nontender no LE edema s1 s2 rrr MMM Laboratory, Imaging, and Diagnostic Test Results - WBC: 18 (elevated) - Glucose: Elevated (specific value not provided) - Bicarbonate: 22 - Anion gap: 16 - Urine: - BHP: Positive - Ketones: Present - Blood: - WBC: 4 - RBC: 8000 Assessment & Plan Assessment - Type 1 Diabetes Mellitus - Diabetic Ketoacidosis resolved - starvation ketosis - Nausea and Vomiting - Cannabinoid Hyperemesis Syndrome - Substance Use Disorder Plan - Discontinue insulin drip - Start Lantus 17 units and Lispro 3 units with sliding scale - Continue IV fluids - Replete potassium - Initiate clear liquid diet, advance to diabetic diet as tolerated - Administer PRN Haldol for nausea and vomiting - Discontinue Lovenox - Transfer from ICU to regular floor - Discharge anticipated for tomorrow Diet: Diabetic diet DVT PPX: Ambulatory GI PPX: Not indicated. Code Status: Full Code. Plan discussed with: Patient My Orders Orders - KELL FRANK MD Procedure Category Date Status Time Insulin Lantus PHA 10/20/24 Transmitted (Glargine) (Lantus) 13:15 Insulin Lantus PHA 10/21/24 Transmitted (Glargine) (Lantus) 07:00 Insulin Lispro PHA 10/20/24 Transmitted (Human) (Humalog) 17:00 Insulin Lispro PHA 10/20/24 Transmitted (Human) (Humalog) 17:00 Glucose Blood PHA 10/20/24 Transmitted (Accu-Chek Comfort 17:00 Hydroxyzine Oral PHA 10/20/24 Transmitted (Vistaril Oral) 13:15 Haloperidol Lactate PHA 10/20/24 Transmitted Injection (Haldol) 13:15 Transfer Orders XFER 10/20/24 Transmitted 13:06 Date of Service: Oct 20, 2024 Billing Provider: KELL FRANK MD Common Visit Codes: [id number] INP/OBS CARE(HIGH) KELL FRANK MD Oct 20, 2024 13:13
[2024-10-20] MEDS: INSULIN LISPRO (HUMAN) 100 UNITS/ML ML SC SCH ×2 (14:35→17:00)
[2024-10-20] MEDS: HALOPERIDOL LACTATE 5 MG/ML INJ VIAL IM PRN (14:37)
[2024-10-20] MEDS: hydrOXYzine HCL 10 MG TAB PO PRN (17:19)
[2024-10-20 18:21] LABS: Sodium 140 mmol/L (136-145)
[2024-10-20 18:22] LABS: Anion Gap 11 (5-15); Calcium 9.0 mg/dL (8.7-10.4); Carbon Dioxide 21 mmol/L (20-31)
[2024-10-20 18:28] LABS: BUN/Creatinine Ratio 6.0 (10.0-20.0); Blood Urea Nitrogen < 5 mg/dL (9-23); Chloride 108 mmol/L (98-107); Glucose 128 mg/dL (74-106); Potassium 3.3 mmol/L (3.5-5.1)
[2024-10-21 01:00] VITALS: BP 124/65; PULSE 77; RESP 16; TEMP 97.3; O2SAT 97
[2024-10-21 05:00] VITALS: BP 118/67; PULSE 80; RESP 16; TEMP 97.6; O2SAT 97
[2024-10-21] MEDS: INSULIN LANTUS (GLARGINE) 1 /0.01ml (100units/ml) SC SCH (06:07)
[2024-10-21 06:41] LABS: Hematocrit 45.4 % (41.0-53.0); Hemoglobin 15.8 g/dL (13.5-17.5); Mean Corpuscular Hemoglobin 29.9 pg (28.0-32.0); Mean Corpuscular Volume 86.2 fL (80.0-100.0); Nucleated Red Blood Cells % 0.1 %
[2024-10-21 06:45] LABS: Anion Gap 11 (5-15); Carbon Dioxide 22 mmol/L (20-31); Chloride 105 mmol/L (98-107); Sodium 138 mmol/L (136-145)
[2024-10-21 06:46] LABS: Calcium 9.3 mg/dL (8.7-10.4)
[2024-10-21 06:51] LABS: BUN/Creatinine Ratio 8.8 (10.0-20.0)
[2024-10-21 06:56] LABS: Blood Urea Nitrogen 8 mg/dL (9-23); Glucose 176 mg/dL (74-106); Potassium 3.5 mmol/L (3.5-5.1)
[2024-10-21 08:00] VITALS: PULSE 73; RESP 16; O2SAT 99
[2024-10-21 09:00] VITALS: BP 137/89; PULSE 73; RESP 16; TEMP 97.9; O2SAT 99
[2024-10-21 13:00] VITALS: BP 127/79; PULSE 87; RESP 16; TEMP 98.7; O2SAT 100
[2024-10-21] MEDS ORDERED: ZOFR4T PO (13:29)
[2024-10-21] MEDS ORDERED: METO5TAB67 PO (13:33)
--- NOTE | 2024-10-21 13:34 | DVHDS2 ---
Discharge Summary Date of Admission Oct 19, 2024 at 17:39 Date of Discharge: Oct 21, 2024 Labs/Diagnostic Data: Laboratory Results Test 10/21/24 11:54 10/21/24 05:05 10/19/24 12:00 10/19/24 08:11 POC Glucose 215 mg/dl (70-106) White Blood Count 10.9 10^3/uL (4.4-10.8) Red Blood Count 5.27 10^6/uL (4.5-5.90) Hemoglobin 15.8 g/dL (13.5-17.5) Hematocrit 45.4 % (41.0-53.0) Mean Corpuscular Volume 86.2 fL (80.0-100.0) Mean Corpuscular Hemoglobin 29.9 pg (28.0-32.0) Mean Corpuscular Hemoglobin Concent 34.7 g/dL (32.0-36.0) Red Cell Distribution Width 12.8 % (11.8-14.3) Platelet Count 192 10^3/uL (140-450) Mean Platelet Volume 9.6 fL (6.9-10.8) Neutrophils (%) (Auto) 66.3 % (37.0-80.0) Lymphocytes (%) (Auto) 23.9 % (10.0-50.0) Monocytes (%) (Auto) 8.3 % (0.0-12.0) Eosinophils (%) (Auto) 0.7 % (0.0-7.0) Basophils (%) (Auto) 0.8 % (0.0-2.0) Neutrophils # (Auto) 7.3 10 ^3/uL (1.6-8.6) Lymphocytes # (Auto) 2.6 10 ^3/uL (0.4-5.4) Monocytes # (Auto) 0.9 10 ^3/uL (0-1.3) Eosinophils # (Auto) 0.1 10 ^3/uL (0-0.8) Basophils # (Auto) 0.1 10 ^3/uL (0-0.2) Nucleated Red Blood Cells 0.1 % Sodium Level 138 mmol/L (136-145) Potassium Level 3.5 mmol/L (3.5-5.1) Chloride Level 105 mmol/L (98-107) Carbon Dioxide Level 22 mmol/L (20-31) Anion Gap 11 (5-15) Blood Urea Nitrogen 8 mg/dL (9-23) Creatinine 0.91 mg/dL (0.700-1.30) Glomerular Filtration Rate Calc 123 mL/min (>90) BUN/Creatinine Ratio 8.8 (10.0-20.0) Serum Glucose 176 mg/dL (74-106) Calcium Level 9.3 mg/dL (8.7-10.4) Urine Color Light-red (Yellow) Urine Clarity Ex.turbid (Clear) Urine pH 6.5 (5.0-9.0) Urine Specific [place] 1.025 (1.001-1.035) Urine Protein 1+ (Negative) Urine Ketones 3+ (Negative) Urine Blood 3+ /uL (Negative) Urine Nitrite Negative (Negative) Urine Bilirubin Negative (Negative) Urine Urobilinogen Normal mg/dL (Negative) Urine Leukocyte Esterase 1+ /uL (Negative) Urine RBC 8799 /hpf (0 - 3) Urine Microscopic WBC 4 /HPF (0-3) Urine Squamous Epithelial Cells None seen /hpf (<5) Urine Bacteria None seen /hpf (None Seen) Urine Yeast (Budding) Moderate /hpf (None Seen) Urine Glucose 4+ mg/dL (Normal) Beta-Hydroxybutyric Acid 0.590 mmol/L (< 0.4) Other Laboratory Tests 10/21/24 05:05 Brief Hx & Hospital Course: Ferdinand Randolph, a 23-year-old male with type 1 diabetes, presented to the ED with nausea and vomiting after consuming a THC gummy. He has a history of marijuana use and cyclic vomiting syndrome (CHS). The patient reports experiencing nausea and vomiting, which he believes may be related to a CHS episode. He notes that haloperidol has been helpful in managing these symptoms in the past. Ferdinand also mentions having "a little diarrhea, but not bad," occurring twice. He denies any recent travel or exposure to individuals with similar symptoms, though he mentions someone in his household had a cough recently. Regarding his diabetes management, Ferdinand uses an Omnipod insulin pump at home. He does not take any long-acting insulin. He last saw his commercial electrician, whose last name he believes is Swapnil, a few months ago. The patient reports occasional use of cocaine, occurring every few months. He also uses nicotine through vaping and regularly consumes marijuana. Ferdinand denies use of heroin, meth, or alcohol. 10/21: patient tolerating po, doing well. ready for dc as plan below diagnosis - Type 1 Diabetes Mellitus - Diabetic Ketoacidosis resolved - Cannabinoid Hyperemesis Syndrome possible - starvation ketosis - Nausea and Vomiting - Substance Use Disorder plan: -take reglan 3x/day as needed for nausea -recommend stop haldol for nausea (f/u with PCP to review medications) -abstain from THC -continue other home meds not mentioned above. Condition at Discharge: Stable Final Diagnosis/Problems List - Type 1 Diabetes Mellitus - Diabetic Ketoacidosis resolved - Cannabinoid Hyperemesis Syndrome possible - starvation ketosis - Nausea and Vomiting - Substance Use Disorder Discharge Disposition: Home Discharge Instruct/Medications Diet: Consistent carbohydrate Activity: No Restrictions, As Tolerated Follow Up/Referral: below Medications: below Scheduled Olanzapine (Zyprexa), 5 MG PO HS, (Reported) Quetiapine Fumerate (Seroquel), 75 MG PO HS, (Reported) Scheduled PRN Metoclopramide Hcl (Reglan), 5 MG PO TIDP PRN Miscellaneous Medications Insulin Lispro (Humalog Kwikpen), SC, (Reported) Insulin Lispro (Human) (Humalog), SC, (Reported) Discharge Statement: "Patient was advised to return to the ER or call 911 if any headaches, dizziness, shortness of breath, chest pain, abdominal pain, bleeding, fevers, or worsening of medical condition. Patient was counseled about treatment plan, medications, possible side effects, patientverbalized understanding. All questions were answered to the best of my ability. This discharge took greater then 30 minutes in planning, reviewing documentation, counseling the patient, and discussing with other team members." Date of Service: Oct 21, 2024 Billing Provider: HAI KHAN MD Common Visit Codes: [id number] DISCH DAY >30min HAI KHAN MD Oct 21, 2024 13:34
[2024-10-21 13:42] VITALS: BP 127/79; PULSE 87; RESP 16; TEMP 98.7; O2SAT 100
== END 2024-10-21 14:10 | disposition home or self-care (01) | DRG 420 ==
LOC: EDUNIT# 07:34 → EDBD 07:34 → ER 07:34 → OVERFLOW 17:39 → TELE-WESTW 10-20 16:23 → WEST WING 10-21 07:31
PROVIDERS: ADMIT Internal Medicine; ATTEND Internal Medicine
DX: E10.10 Type 1 diabetes mellitus with ketoacidosis without coma (principal); E88.89 Other specified metabolic disorders; F12.90 Cannabis use, unspecified, uncomplicated; Z79.4 Long term (current) use of insulin; T73.0XXA Starvation, initial encounter; Z79.899 Other long term (current) drug therapy
CPT/HCPCS: 36415; 80048; 81001; 82010; 82962; 85025; 87081; 87086; 96361; 96374; G0378; J1815; J2405; J2470

== ENCOUNTER 2024-11-29 08:13 | Inpatient (IN) | payer MEDICAID ==
[~2024-11-29] VITALS: Ht 172.7 cm; Wt 84.0 kg
[2024-11-29] VITALS (7 sets, daily range): BP systolic 105–121; BP diastolic 33–70; PULSE 64–97; RESP 9–20; TEMP 98.8; O2SAT 94–100
[~2024-11-29 08:13] MED LIST changes: +METO5TAB67 PO
[2024-11-29] MEDS: SODIUM CHLORIDE 0.9% 1,000 ML IVB ONE (09:05)
[2024-11-29] MEDS: ONDANSETRON HCL 4 MG/2 ML VIAL IV ONE ×2 (09:05→14:54)
[2024-11-29] MEDS: MORPHINE SULFATE 4 MG/ML SYR/VIAL IV ONE ×2 (09:06→14:00)
--- NOTE | 2024-11-29 09:18 | ED.PDOC ---
GI ASSESSMENT HPI Comments Ferdinand Acharya is a 24-year-old male, with past medical history of DM type 1 (on insulin pump 1U per 7 Carb). The patient came to the ED via EMS with chief complain of 7 hrs of abdominal pain that woke him up from his sleep. The pain is 10/10, cramp-like, diffused in the abdomen, no irradiates; associated with nausea and vomit #>7 of gastric content, no blood. The patient reports the pain did not improved with rest and the vomit did not subside, this prompt his visit to the ED. On further questioning, the patient reports his insulin pump has not been working properly for the last 2 days. His blood sugar at home are in average 150. Today, the level was above 300. Also, the patient reports marijuana use, last time was yesterday at night. The patient denies fever, chills, diarrhea, chest pain, or other symptoms. In the ED his BP: 147/80mmHg, HR: 99bpm, peripheral blood sugar: 373mg/dl. The patient will be further assessed. Chief Complaint: Abdominal Pain Time Seen by MD: 08:21 Primary Care Provider: Marcel Reviewed Notes: Nurses Notes, Medications, Allergies Allergies: Coded Allergies: NO KNOWN ALLERGIES (Unverified , 02/03/21) Home Meds Active Scripts Metoclopramide Hcl (Reglan) 5 Mg Tab, 5 MG PO TIDP PRN for 7 Days, #21 TAB 0 Refills Prov:HAI KHAN MD 10/21/24 Reported Medications Olanzapine (Zyprexa) 5 Mg Tab, 5 MG PO HS 11/12/21 Insulin Lispro (Human) (Humalog) 100 Unit/Ml Inj, SC 11/12/21 Quetiapine Fumerate (Seroquel) 50 Mg Tab, 75 MG PO HS 11/12/21 Insulin Lispro (Humalog Kwikpen) 100 Unit/Ml Inj, SC 11/12/21 Information Source: Patient Mode of Arrival: EMS Timing: Hours Duration: Since onset Quality: Cramping Vomitus: Food Particles Severity: Moderate Recent: Other (Marijuana use) Pain Location: Diffuse Associated sign and symptoms: Nausea, Vomiting Past Medical History PAST MEDICAL HISTORY: DM Past Medical History (Other): DM type 1 Surgical History: Appendectomy Family History Family History: Unknown Social History Smoker: Other (nicotine vape) Alcohol: Occasionally Drugs: Marijuana (Last use was last night) Lives In: Home Constitutional: denies: chills, diaphoresis, fatigue, fever, malaise, sweats, weakness, others EENTM: denies: blurred vision, double vision, ear bleeding, ear discharge, ear drainage, ear pain, ear ringing, eye pain, eye redness, hearing loss, mouth pain, mouth swelling, nasal discharge, nose bleeding, nose congestion, nose pain, photophobia, tearing, throat pain, throat swelling, voice changes, others Respiratory: denies: cough, hemoptysis, orthopnea, SOB at rest, shortness of breath, SOB with excertion, stridor, wheezing, others Cardiovascular: denies: chest pain, dizzy spells, diaphoresis, Dyspnea on exertion, edema, irregular heart beat, left arm pain, lightheadedness, palpitations, PND, syncope, others Gastrointestinal: reports: abdominal pain, nausea, vomiting; denies: abdomen distended, blood streaked bowels, constipated, diarrhea, dysphagia, difficulty swallowing, hematemesis, melena, poor appetite, poor fluid intake, rectal bleeding, rectal pain, others Genitourinary: denies: burning, dysuria, flank pain, frequency, hematuria, incontinence, penile discharge, penile sore, pain, testicle pain, testicle swelling, urgency, others Neurological: denies: dizziness, fainting, headache, left sided numbness, left sided weakness, numbness, paresthesia, pre-existing deficit, right sided numbness, right sided weakness, seizure, speech problems, tingling, tremors, weakness, others Musculoskeletal: denies: back pain, gout, joint pain, joint swelling, muscle pain, muscle stiffness, neck pain, others Integumetry: denies: bruises, change in color, change in hair/nails, dryness, laceration, lesions, lumps, rash, wounds, others Allergic/Immunocompromised: denies: Difficulty Healing, Frequent Infections, Hives, Itching, others Hematologic/Lymphatic: denies: anemia, blood clots, easy bleeding, easy bruising, swollen glands, others Endocrine: denies: excessive hunger, excessive sweating, excessive thirst, excessive urination, flushing, intolerance to cold, intolerance to heat, unexplained weight gain, unexplained weight loss, others Psychiatric: denies: anxiety, bipolar disorder, depression, hopeless, panic disorder, schizophrenia, sleepless, suicidal, others Physical Exam General Appearance: Moderate Distress HEENT: Normal ENT Inspection, Pharynx Normal, TMs Normal Neck: Full Range of Motion, Non-Tender, Normal, Normal Inspection Respiratory: Chest Non-Tender, Lungs Clear, No Accessory Muscle Use, No Respiratory Distress, Normal Breath Sounds Cardiovascular: No Edema, No JVD, No Murmur, No Gallop, Normal Peripheral Pulses, Regular Rate/Rhythm Breast Exam: Deferred Gastrointestinal: Soft, Tenderness (Inspection: insuline pump on left flank. No changes on skin. Auscultation: bowel sounds present, normo active. Difusely tender. ) Genitalia: Deferred Pelvic: Deferred Rectal: Deferred Extremities: No calf tenderness, Normal capillary refill, Normal inspection, Normal range of motion, Non-tender, No pedal edema Musculoskeletal : Apperance: Normal Neurologic: Alert, foundation coordinator II-XII nml as Tested, No Motor Deficits, Normal Affect, Normal Mood, No Sensory Deficits Cerebellar Function: Normal Reflexes: Normal Skin: Dry, Normal Color, Warm Lymphatic: No Adenopathy Was a procedure done? Was a procedure done?: No GI differential Dx Differential Diagnosis: Cholecystitis, Gastritis/PUD, Gastroenteritis, Electrolyte Imbalance, Other Other Differential Diagnosis #Cannabinoid hyperemesis #Pancreatitis #SBO, dehydration, electrolyte disturbance, DKA X-Ray, Labs, Meds, VS Vital Signs Date Time Temp Pulse Resp B/P (MAP) Pulse Ox O2 Delivery O2 Flow Rate FiO2 11/29/24 10:39 54 10 134/80 11/29/24 10:39 98.1 54 10 134/80 (98) 99 98.1 11/29/24 09:06 75 10 147/87 11/29/24 08:29 75 10 100 Room Air* 0 21 11/29/24 08:28 97.1 75 10 147/87 (107) 100 97.1 11/29/24 08:17 97.9 78 22 176/76 99 97.9 Lab Test 11/29/24 10:30 11/29/24 09:35 11/29/24 08:27 Range/Units Lactic Acid Level 4.0 *H 4.8 *H 0.4-2.0 mmol/L Beta-Hydroxybutyric Acid Pending White Blood Count 26.4 H 4.4-10.8 10^3/uL Red Blood Count 5.65 4.5-5.90 10^6/uL Hemoglobin 16.2 13.5-17.5 g/dL Hematocrit 49.1 41.0-53.0 % Mean Corpuscular Volume 86.8 80.0-100.0 fL Mean Corpuscular Hemoglobin 28.6 28.0-32.0 pg Mean Corpuscular Hemoglobin Concent 33.0 32.0-36.0 g/dL Red Cell Distribution Width 13.5 11.8-14.3 % Platelet Count 282 140-450 10^3/uL Mean Platelet Volume 9.5 6.9-10.8 fL Neutrophils (%) (Auto) 37.0-80.0 % Lymphocytes (%) (Auto) 10.0-50.0 % Monocytes (%) (Auto) 0.0-12.0 % Basophils (%) (Auto) 0.0-2.0 % Neutrophils # (Auto) 1.6-8.6 10 ^3/uL Lymphocytes # (Auto) 0.4-5.4 10 ^3/uL Monocytes # (Auto) 0-1.3 10 ^3/uL Differential Total Cells Counted 100.0 100 Neutrophils % (Manual) 82 H 37.0-80.0 Band Neutrophils % (Manual) 5 Lymphocytes % (Manual) 5 L 10.0-50.0 Monocytes % (Manual) 8 0-12 Eosinophils % (Manual) 0 0-7 Basophils % (Manual) 0 0.0-2.0 Metamyelocytes % (manual) 0 Myelocytes % (Manual) 0 Promyelocytes % (Manual) 0 Blast Cells % (Manual) 0 Reactive Lymphocytes 0 Platelet Estimate Adequate Sodium Level 138 136-145 mmol/L Potassium Level 5.2 H 3.5-5.1 mmol/L Chloride Level 103 98-107 mmol/L Carbon Dioxide Level 18 L 20-31 mmol/L Anion Gap 17 H 5-15 Blood Urea Nitrogen 13 9-23 mg/dL Creatinine 1.47 H 0.700-1.30 mg/dL Glomerular Filtration Rate Calc 69 >90 mL/min BUN/Creatinine Ratio 8.8 L 10.0-20.0 Serum Glucose 284 H 74-106 mg/dL Calcium Level 9.6 8.7-10.4 mg/dL Magnesium Level 1.7 1.6-2.6 mg/dL Total Bilirubin 1.1 H 0.2-1.0 mg/dL Aspartate Amino Transferase (AST) 17 13-40 U/L Alanine Aminotransferase (ALT) 17 7-40 U/L Alkaline Phosphatase 87 46-116 U/L Total Protein 8.3 H 5.7-8.2 g/dL Albumin 5.2 H 3.2-4.8 g/dL Lipase 26 12-53 U/L POC Glucose 260 H 70-106 mg/dl Current Medications Medications (Trade) Dose Ordered Sig/Osvaldo Route Start Time Stop Time Status Last Admin Ondansetron HCl (Zofran) 4 mg ONCE ONCE IV 11/29/24 09:00 11/29/24 09:01 DC 11/29/24 09:05 Sodium Chloride 1,000 ml @ 1,000 mls/hr Q1H ONCE IVB 11/29/24 09:00 11/29/24 09:59 DC 11/29/24 09:05 Morphine Sulfate 4 mg ONCE ONCE IV 11/29/24 09:00 11/29/24 09:01 DC 11/29/24 09:06 Sodium Chloride 1,000 ml @ 1,000 mls/hr Q1H ONCE IV 11/29/24 10:30 11/29/24 11:29 DC 11/29/24 10:38 X-Ray, Labs, Meds, VS Comment 10:15 The patient was re-assessed. The patient report improvement on nausea after IV fluids and Zofran and pain medication VS: 147/87mmHg, RR:10 [id number] CBC: WBC: 26.4x10e3/uL, Hb:16.2mg/dl CMP: K: 5.2mmol/l, Anion gap: 17, Lactic acid: 4.8, Glucose: 284 CT scan abdomen: No acute noncontrast CT abnormality in the abdomen or pelvis. Diffuse hepatic steatosis. Punctate nonobstructing left renal calculus. The patient will be transferred to [place] for further assessment and management. Dr. Beck: Patient seen and examined personally by myself along with resident Dr. Andrade. Patient has a 24-year-old male here with diffuse abdominal pain and active emesis. He has a known history of diabetes type 1 and has been insulin pump has not been working well. Immediate concern for DKA. At this time blood work has been done including a CBC CMP lactic acid. CMP also demonstrates significant other abnormalities. He is immediately been started on IV fluids at this time. He does have a leukocytosis of 26.4 but no other signs or symptoms of sepsis or SIRS. Does not have a fever he is not tachycardic in the ER. He does endorse history of cannabinoid use and states this does feel like cannabinoid hyperemesis syndrome. Labs also demonstrates significant other abnormalities. Patient appears significantly dehydrated. And potentially in DKA. CT abdomen pelvis however has been performed given his diffuse abdomen tenderness. No evidence of acute pathology except for diffuse hepatic steatosis and punctate nonobstructing left renal calculus. At this time his lactic acid has returned at 4.8. Despite 2 L normal saline lactic acid is still 4. Additional IV fluids has been written. At this time at 12:00 p.m. I spoke to Dr. Woods at [facility] who will be looking for a bed for him. Authorization #[id number]. Time of 1ST Reevaluation: 10:15 Reevaluation 1ST: Unchanged Patient Education/Counseling: Diagnosis, Treatment, Prognosis, Need For Follow Up Family Education/Counseling: No Family Present SEPSIS Sepsis Screen Date sepsis recognized/suspect: Nov 29, 2024 Time Sepsis recognized/suspect: 818 Recent Procedure: No On Antibiotic Therapy: No Respiratory Rate >20: Yes Heart Rate >90: No Temp<36 C (96.8 F) or >38.3 C: No SBP <90 or MAP <65 mmHG: No New Acute Mental Status Change: No Is the patient on CPAP, BIPAP,: No Physician Orders Urinalysis (11/29/24 08:55) Ct Ab Pel Wo Con-No Oral Or Iv (11/29/24 08:55) Beta-Hydroxybutyrate (11/29/24 10:16) Vital Signs Date Time Temp Pulse Resp B/P (MAP) Pulse Ox O2 Delivery O2 Flow Rate FiO2 11/29/24 10:39 54 10 134/80 11/29/24 10:39 98.1 54 10 134/80 (98) 99 98.1 11/29/24 09:06 75 10 147/87 11/29/24 08:29 75 10 100 Room Air* 0 21 11/29/24 08:28 97.1 75 10 147/87 (107) 100 97.1 11/29/24 08:17 97.9 78 22 176/76 99 97.9 Laboratory Tests Test 11/29/24 09:35 11/29/24 10:30 Lactic Acid Level 4.8 mmol/L (0.4-2.0) *H 4.0 mmol/L (0.4-2.0) *H White Blood Count 26.4 10^3/uL (4.4-10.8) H Medications Medications Dose Ordered Sig/Osvaldo Route Start Time Stop Time Status Last Admin Dose Admin Morphine Sulfate 4 mg ONCE ONCE IV 11/29/24 09:00 11/29/24 09:01 DC 11/29/24 09:06 Ondansetron HCl 4 mg ONCE ONCE IV 11/29/24 09:00 11/29/24 09:01 DC 11/29/24 09:05 Sodium Chloride 1,000 ml @ 1,000 mls/hr Q1H ONCE IV 11/29/24 10:30 11/29/24 11:29 DC 11/29/24 10:38 Sodium Chloride 1,000 ml @ 1,000 mls/hr Q1H ONCE IVB 11/29/24 09:00 11/29/24 09:59 DC 11/29/24 09:05 Departure 1 Departure Time of Disposition: 10:52 Impression: Primary Impression: Cannabinoid hyperemesis syndrome Additional Impressions: Hyperglycemia Uncontrolled diabetes mellitus Qualified Codes: E10.65 - Type 1 diabetes mellitus with hyperglycemia Dehydration Leukocytosis Qualified Codes: D72.829 - Elevated white blood cell count, unspecified Disposition: 02 [facility]ORT TERM [facility] Condition: Fair Comments Goals of care discussed with the patient > 35 min. Discussed plan of care with Dr. Beck Code status: Full code PCP: The patient does not recall name. Dr. Kraft (endocrinology) Plan discussed with: Patient, the patient agrees with the plan. Critical Care Note Critical Care Time?: Yes (1 hr-critical care time only) Critical care comment: I was asked to immediately to see the patient along with the resident given his significant abdominal pain. Immediate concern for DKA. Time spent speaking to nursing staff, speaking to resident, re-evaluating the patient, reviewing lab work, reassessing the patient. Speaking to [place] physician Stability Stability form required: Yes Stable for transfer: To designated facility ([facility]) Heart Score Heart Score: Heart Score Response (Comments) Value History N/A 0 EKG N/A 0 Age N/A 0 Risk Factors N/A 0 Troponin N/A 0 Total 0 ELZBIETA ANDRADE Nov 29, 2024 09:18 KRISH BECK MD Nov 29, 2024 10:29
[2024-11-29 09:51] LABS: Hematocrit 49.1 % (41.0-53.0); Hemoglobin 16.2 g/dL (13.5-17.5); Mean Corpuscular Hemoglobin 28.6 pg (28.0-32.0); Mean Corpuscular Volume 86.8 fL (80.0-100.0)
--- NOTE | 2024-11-29 09:59 | DVH ---
CLINICAL HISTORY: Abdomial pain TECHNIQUE: CT of the abdomen and pelvis was performed without IV contrast. This exam was performed ac cording to our departmental dose optimization program. Up-to-date CT equipment and radiation dose red uction techniques are utilized as appropriate. CTDI 9.8 DLP 484 COMPARISON: CT ABDOMEN WITHOUT CONTRAST on DOS: 11/08/22, CT ABD PELVIS WO CONTRAST on DOS: 02/03/21 FINDINGS: Abdomen/Pelvis: The spleen, pancreas, adrenal glands, gallbladder, right kidney, bladder, and prostate gland are tiffanie sly unremarkable. There is diffuse hepatic steatosis. There is a 2 mm nonobstructing left renal calculus. The abdominal aorta is normal in course and caliber. There are no significant atherosclerotic calcifi cations. There is no free intraperitoneal air or fluid. There is no enlarged abdominal pelvic lymph node. There is no bowel wall thickening or dilatation. The appendix is not seen, likely surgically absent. Other: The imaged lower thorax is unremarkable. No acute osseous abnormality is evident. Impression: No acute noncontrast CT abnormality in the abdomen or pelvis. Diffuse hepatic steatosis. Punctate nonobstructing left renal calculus.
[2024-11-29 10:03] LABS: Total Cells Counted 100.0 (100)
[2024-11-29 10:09] LABS: Alanine Aminotransferase 17 U/L (7-40); Alkaline Phosphatase 87 U/L (46-116); Anion Gap 17 (5-15); BUN/Creatinine Ratio 8.8 (10.0-20.0); Blood Urea Nitrogen 13 mg/dL (9-23); Calcium 9.6 mg/dL (8.7-10.4); Chloride 103 mmol/L (98-107); Magnesium 1.7 mg/dL (1.6-2.6); Sodium 138 mmol/L (136-145)
[2024-11-29 10:10] LABS: Bilirubin, Total 1.1 mg/dL (0.2-1.0)
[2024-11-29 10:14] LABS: Albumin 5.2 g/dL (3.2-4.8); Carbon Dioxide 18 mmol/L (20-31); Glucose 284 mg/dL (74-106); Potassium 5.2 mmol/L (3.5-5.1); Total Protein 8.3 g/dL (5.7-8.2)
[2024-11-29 10:19] LABS: Lactic Acid w/Reflex 4.8 mmol/L (0.4-2.0)
[2024-11-29 10:27] LABS: Lipase 26 U/L (12-53)
[2024-11-29] MEDS: SODIUM CHLORIDE 0.9% 1,000 ML IV ONE ×2 (10:38→12:26)
[2024-11-29 12:51] LABS: Urine Protein, UAD TRACE (Negative)
[2024-11-29 14:10] LABS: Lactic Acid w/Reflex 4.7 mmol/L (0.4-2.0)
[2024-11-29] MEDS: DEXTROSE (50%) 50ML SYRG IV ONE (14:26)
--- NOTE | 2024-11-29 14:29 | DVHHP2 ---
History of Present Illness Reason for Visit: Abdominal pain with nausea and vomiting History of Present Illness Ferdinand Randolph is a 24-year-old male with past medical history of diabetes type 1, DKA, and appendectomy who presents to the ED with abdominal pain, nausea, and vomiting that started this morning. Patient reports that he has a CGM and insulin pump on his left lower quadrant abdomen, reports that his insulin pump stopped working this morning around 1:00 a.m once he got out of the shower. Patient also reports that he has been vomiting nonstop food contents and bile li ke color, unknown amount of times. Patient also reports that he uses marijuana and vapes. Patient also reports that he has not been eating very much as he has not had an appetite. He denies any recent trauma or injury, recent sick contacts, recent falls, r ecent ingestion of spoiled food, chest pain, shortness of breath, fever, chills, lightheadedness, weakness, dizziness, diarrhea, or urinary symptoms. Endocrine: Diabetes Past Medical History DKA Past Surgical History: Appendectomy Smoke: # pack years ALCOHOL: none Drugs: Marijuana Lives: with Family Domestic Violence: Neg Review of Systems Gastrointestinal: Nausea, Vomiting, Abdominal Pain Allergies: Coded Allergies: NO KNOWN ALLERGIES (Unverified , 02/03/21) Exam Vital Signs Vital Signs Date Time Temp Pulse Resp B/P (MAP) Pulse Ox O2 Delivery O2 Flow Rate FiO2 11/29/24 10:39 54 10 134/80 11/29/24 10:39 98.1 99 98.1 11/29/24 08:29 Room Air* 0 21 General Appearance: Alert, Oriented X3, Cooperative, No acute distress HEENT: Atraumatic, PERRLA, EOMI, Mucous membr. moist/pink Respiratory: Clear to auscultation, Normal air movement Cardiovascular: Normal S1, Normal S2 Abdominal: Normal bowel sounds, Soft Neuro: Normal speech, Strength at 5/5 X4 ext, Normal tone, Sensation intact Psych/Mental Status: Mental status NL, Mood NL Labs/Xrays Labs Test 11/29/24 13:14 11/29/24 10:30 11/29/24 09:35 11/29/24 08:36 Range/Units Lactic Acid Level 4.7 *H 0.4-2.0 mmol/L Beta-Hydroxybutyric Acid 2.220 H < 0.4 mmol/L White Blood Count 26.4 H 4.4-10.8 10^3/uL Red Blood Count 5.65 4.5-5.90 10^6/uL Hemoglobin 16.2 13.5-17.5 g/dL Hematocrit 49.1 41.0-53.0 % Mean Corpuscular Volume 86.8 80.0-100.0 fL Mean Corpuscular Hemoglobin 28.6 28.0-32.0 pg Mean Corpuscular Hemoglobin Concent 33.0 32.0-36.0 g/dL Red Cell Distribution Width 13.5 11.8-14.3 % Platelet Count 282 140-450 10^3/uL Mean Platelet Volume 9.5 6.9-10.8 fL Neutrophils (%) (Auto) 37.0-80.0 % Lymphocytes (%) (Auto) 10.0-50.0 % Monocytes (%) (Auto) 0.0-12.0 % Basophils (%) (Auto) 0.0-2.0 % Neutrophils # (Auto) 1.6-8.6 10 ^3/uL Lymphocytes # (Auto) 0.4-5.4 10 ^3/uL Monocytes # (Auto) 0-1.3 10 ^3/uL Differential Total Cells Counted 100.0 100 Neutrophils % (Manual) 82 H 37.0-80.0 Band Neutrophils % (Manual) 5 Lymphocytes % (Manual) 5 L 10.0-50.0 Monocytes % (Manual) 8 0-12 Eosinophils % (Manual) 0 0-7 Basophils % (Manual) 0 0.0-2.0 Metamyelocytes % (manual) 0 Myelocytes % (Manual) 0 Promyelocytes % (Manual) 0 Blast Cells % (Manual) 0 Reactive Lymphocytes 0 Platelet Estimate Adequate Sodium Level 138 136-145 mmol/L Potassium Level 5.2 H 3.5-5.1 mmol/L Chloride Level 103 98-107 mmol/L Carbon Dioxide Level 18 L 20-31 mmol/L Anion Gap 17 H 5-15 Blood Urea Nitrogen 13 9-23 mg/dL Creatinine 1.47 H 0.700-1.30 mg/dL Glomerular Filtration Rate Calc 69 >90 mL/min BUN/Creatinine Ratio 8.8 L 10.0-20.0 Serum Glucose 284 H 74-106 mg/dL Calcium Level 9.6 8.7-10.4 mg/dL Magnesium Level 1.7 1.6-2.6 mg/dL Total Bilirubin 1.1 H 0.2-1.0 mg/dL Aspartate Amino Transferase (AST) 17 13-40 U/L Alanine Aminotransferase (ALT) 17 7-40 U/L Alkaline Phosphatase 87 46-116 U/L Total Protein 8.3 H 5.7-8.2 g/dL Albumin 5.2 H 3.2-4.8 g/dL Lipase 26 12-53 U/L Urine Color Colorless Yellow Urine Clarity Clear Clear Urine pH 7.0 5.0-9.0 Urine Specific [place] 1.019 1.001-1.035 Urine Protein Trace H Negative Urine Ketones 4+ H Negative Urine Blood 3+ H Negative /uL Urine Nitrite Negative Negative Urine Bilirubin Negative Negative Urine Urobilinogen Normal Negative mg/dL Urine Leukocyte Esterase Negative Negative /uL Urine RBC 225 0 - 3 /hpf Urine Microscopic WBC 5 H 0-3 /HPF Urine Squamous Epithelial Cells None seen <5 /hpf Urine Bacteria None seen None Seen /hpf Urine Mucus Few None Seen Urine Glucose 4+ H Normal mg/dL Test 11/29/24 08:27 Range/Units POC Glucose 260 H 70-106 mg/dl CLINICAL HISTORY: Abdomial pain TECHNIQUE: CT of the abdomen and pelvis was performed without IV contrast. This exam was performed according to our departmental dose optimization program. Up-to-date CT equipment and radiation dose reduction techniques are utilized as appropriate. CTDI 9.8 DLP 484 COMPARISON: CT ABDOMEN WITHOUT CONTRAST on DOS: 11/08/22, CT ABD PELVIS WO CONTRAST on DOS: 02/03/21 FINDINGS: Abdomen/Pelvis: The spleen, pancreas, adrenal glands, gallbladder, right kidney, bladder, and prostate gland are grossly unremarkable. There is diffuse hepatic steatosis. There is a 2 mm nonobstructing left renal calculus. The abdominal aorta is normal in course and caliber. There are no significant atherosclerotic calcifications. There is no free intraperitoneal air or fluid. There is no enlarged abdominal pelvic lymph node. There is no bowel wall thickening or dilatation. The appendix is not seen, likely surgically absent. Other: The imaged lower thorax is unremarkable. No acute osseous abnormality is evident. Impression: No acute noncontrast CT abnormality in the abdomen or pelvis. Diffuse hepatic steatosis. Punctate nonobstructing left renal calculus. SEPSIS Sepsis Screen Date sepsis recognized/suspect: Nov 29, 2024 Time Sepsis recognized/suspect: 1127 Recent Procedure: No On Antibiotic Therapy: No Respiratory Rate >20: No Heart Rate >90: No Temp<36 C (96.8 F) or >38.3 C: No SBP <90 or MAP <65 mmHG: No New Acute Mental Status Change: No Is the patient on CPAP, BIPAP,: No Physician Orders Ct Ab Pel Wo Con-No Oral Or Iv (11/29/24 08:55) Blood Culture (11/29/24 12:32) Abg W/ Co-Ox (11/29/24 12:44) Vital Signs Date Time Temp Pulse Resp B/P (MAP) Pulse Ox O2 Delivery O2 Flow Rate FiO2 11/29/24 10:39 54 10 134/80 11/29/24 10:39 98.1 54 10 134/80 (98) 99 98.1 11/29/24 09:06 75 10 147/87 11/29/24 08:29 75 10 100 Room Air* 0 21 11/29/24 08:28 97.1 75 10 147/87 (107) 100 97.1 11/29/24 08:17 97.9 78 22 176/76 99 97.9 Laboratory Tests Test 11/29/24 09:35 11/29/24 10:30 11/29/24 13:14 Lactic Acid Level 4.8 mmol/L (0.4-2.0) *H 4.0 mmol/L (0.4-2.0) *H 4.7 mmol/L (0.4-2.0) *H White Blood Count 26.4 10^3/uL (4.4-10.8) H Medications Medications Dose Ordered Sig/Osvaldo Route Start Time Stop Time Status Last Admin Dose Admin Ceftriaxone Sodium 50 ml @ 100 mls/hr ONCE ONCE IV 11/29/24 12:45 11/29/24 13:14 DC 11/29/24 13:26 100 MLS/HR Morphine Sulfate 4 mg ONCE ONCE IV 11/29/24 09:00 11/29/24 09:01 DC 11/29/24 09:06 4 MG Ondansetron HCl 4 mg ONCE ONCE IV 11/29/24 09:00 11/29/24 09:01 DC 11/29/24 09:05 4 MG Sodium Chloride 1,000 ml @ 1,000 mls/hr Q1H ONCE IV 11/29/24 10:30 11/29/24 11:29 DC 11/29/24 10:38 1,000 MLS/HR Sodium Chloride 1,000 ml @ 1,000 mls/hr Q1H ONCE IV 11/29/24 12:15 11/29/24 13:14 DC 11/29/24 12:26 1,000 MLS/HR Sodium Chloride 1,000 ml @ 1,000 mls/hr Q1H ONCE IVB 11/29/24 09:00 11/29/24 09:59 DC 11/29/24 09:05 1,000 MLS/HR Assessment/Plan Assessment/Plan Assessment Lactic acidosis likely sepsis Leukocytosis unclear etiology DKA Hyperkalemia Diffuse hepatic steatosis Punctate nonobstructing left renal calculus YOSI likely prerenal Hyperbilirubinemia Hypertension Marijuana use Vape use History of diabetes type 1 on insulin pump and CGM History of appendectomy History of DKA Plan Admit to ICU Insulin drip IV antibiotics-ceftriaxone Antiemetics Pain management CT abdomen and pelvis noted Beta hydroxy noted NS 3 L given in ED Trend lactic Repeat BMP ABG Blood cultures Urine culture Manual differential Lipase NPO Home medications reconciled DVT prophylaxis-SCDs PUD prophylaxis-PPIs Discussed plan of care with patient and nurse Counseled patient on cessation of marijuana use and vaping use [id number] Behavior change smoking greater than 10 minutes about use of other options also gave option of nicotine patch [id number] Preventive counseling healthy eating habits, physical activity, and regular checkups Plan discussed with: Patient Date of Service: Nov 29, 2024 Billing Provider: GENET GANDHI Common Visit Codes: [id number] INP/OBS CARE (HIGH) Secondary Visit Codes: [id number] COUNSELING IND, 30073-HTPBL CHNG SMOKING >10MIN GENET GANDHI Nov 29, 2024 14:29
[2024-11-29] MEDS ORDERED: ACETAMINOPHEN 325 MG TAB PO PRN (14:30)
[2024-11-29] MEDS ORDERED: MORPHINE SULFATE INJ 2 MG/ml SYRG IV PRN (14:30)
[2024-11-29] MEDS: InsuLIN REG 1unit/0.01ml Soln (100units/ml) IV ONE (14:48)
[2024-11-29] MEDS: HYDROmorphone HCL 2 MG/ML VL/or syr IV ONE (14:55)
[2024-11-29 15:13] LABS: Chloride 104 mmol/L (98-107); Potassium 3.6 mmol/L (3.5-5.1); Sodium 138 mmol/L (136-145)
[2024-11-29 15:14] LABS: Anion Gap 18 (5-15)
[2024-11-29 15:15] LABS: Calcium 9.3 mg/dL (8.7-10.4)
[2024-11-29 15:20] LABS: BUN/Creatinine Ratio 8.5 (10.0-20.0); Blood Urea Nitrogen 11 mg/dL (9-23); Carbon Dioxide 16 mmol/L (20-31); Glucose 349 mg/dL (74-106)
[2024-11-29 15:35] LABS: Base Excess -8.8 mmol/L (-2.0-3.0)
[2024-11-29] MEDS ORDERED: DEXTROSE (50%) 50ML SYRG IV PRN (15:45)
[2024-11-29] MEDS: INSULIN DRIP 100 UNIT/100ML 100 ML IV SCH (15:55)
[2024-11-29] MEDS: INSULIN LANTUS (GLARGINE) 1 /0.01ml (100units/ml) SC ONE (15:58)
[2024-11-29] MEDS: ACCU-CHEK COMFORT CURVE STRIP VI SCH (16:40)
[2024-11-29] MEDS: ONDANSETRON HCL 4 MG/2 ML VIAL IV PRN (18:05)
[2024-11-29] MEDS: OLANZapine 5 MG TAB PO SCH (20:33)
[2024-11-29] MEDS: HYDROmorphone HCL 2 MG/ML VL/or syr IV PRN (22:10)
[2024-11-30] VITALS (14 sets, daily range): BP systolic 96–136; BP diastolic 47–96; PULSE 52–95; RESP 11–20; TEMP 97.1–98.9; O2SAT 93–100
[2024-11-30 04:17] LABS: Hematocrit 44.0 % (41.0-53.0); Hemoglobin 15.2 g/dL (13.5-17.5); Mean Corpuscular Hemoglobin 29.7 pg (28.0-32.0); Mean Corpuscular Volume 86.2 fL (80.0-100.0); Nucleated Red Blood Cells % 0.0 %
[2024-11-30 04:34] LABS: Alanine Aminotransferase 18 U/L (7-40); Albumin 4.8 g/dL (3.2-4.8); Alkaline Phosphatase 78 U/L (46-116); Anion Gap 16 (5-15); BUN/Creatinine Ratio 14.0 (10.0-20.0); Blood Urea Nitrogen 14 mg/dL (9-23); Calcium 9.4 mg/dL (8.7-10.4); Potassium 4.0 mmol/L (3.5-5.1); Sodium 143 mmol/L (136-145); Total Protein 7.3 g/dL (5.7-8.2)
[2024-11-30 04:35] LABS: Bilirubin, Total 1.0 mg/dL (0.2-1.0)
[2024-11-30 04:48] LABS: Carbon Dioxide 20 mmol/L (20-31); Chloride 107 mmol/L (98-107); Glucose 136 mg/dL (74-106)
[2024-11-30] MEDS: INSULIN LANTUS (GLARGINE) 1 /0.01ml (100units/ml) SC SCH (10:00)
[2024-11-30 11:42] LABS: Chloride 105 mmol/L (98-107); Potassium 3.9 mmol/L (3.5-5.1); Sodium 142 mmol/L (136-145)
[2024-11-30 11:43] LABS: Anion Gap 13 (5-15); Calcium 9.7 mg/dL (8.7-10.4); Carbon Dioxide 24 mmol/L (20-31)
[2024-11-30 11:48] LABS: BUN/Creatinine Ratio 10.2 (10.0-20.0); Blood Urea Nitrogen 13 mg/dL (9-23)
[2024-11-30 11:49] LABS: Glucose 122 mg/dL (74-106)
[2024-11-30] MEDS ORDERED: DEXTROSE (50%) 50ML SYRG IV PRN ×2 (12:30→12:45)
--- NOTE | 2024-11-30 13:09 | DVHPN2 ---
Subjective Better Reviewed: Care Plan, H&P, Labs, Medications, Previous Orders, Radiology Changes from previous H/P or p: No Changes Gastrointestinal: Nausea, Vomiting, Abdominal Pain Objective Vitals Vital Signs Date Time Temp Pulse Resp B/P (MAP) Pulse Ox O2 Delivery O2 Flow Rate FiO2 11/30/24 12:30 79 14 122/76 (91) 97 11/30/24 07:40 Room Air* 0 21 11/30/24 07:00 97.6 97.6 Intake/Output Intake and Output 11/30/24 07:00 Intake Total 3066.0 ml Balance 3066.0 ml Intake IV Total 3066.0 ml General Appearance: Alert, Oriented X3, Cooperative, No acute distress HEENT: Atraumatic Lungs: Clear to auscultation Cardiovascular: Regular rate Abdomen: Normal bowel sounds, Soft, No tenderness Medications Current Medications Medications Dose Ordered Sig/Osvaldo Route Start Time Stop Time Status Last Admin Dose Admin Acetaminophen/ Hydrocodone Bitart 1 tab Q4HP PRN PO 11/29/24 14:30 Ondansetron HCl 4 mg Q4HP PRN IV 11/29/24 14:30 11/30/24 07:47 4 MG Acetaminophen 650 mg Q6HP PRN PO 11/29/24 14:30 Morphine Sulfate 2 mg Q4HPRN PRN IV 11/29/24 14:30 Cancel Olanzapine 5 mg HS PO 11/29/24 22:00 11/29/24 20:33 5 MG Ceftriaxone Sodium 50 ml @ 100 mls/hr DAILY@09 IV 11/30/24 09:00 11/30/24 12:04 100 MLS/HR Hydromorphone HCl 0.5 mg Q4HPRN PRN IV 11/29/24 19:00 11/30/24 07:49 0.5 MG Diagnostic Test (Pha) 1 strip ACHS 11/30/24 17:00 UNV Insulin Human Regular HS SC 11/30/24 22:00 UNV Insulin Human Regular AC SC 11/30/24 17:00 UNV Dextrose 50 ml UD PRN IV 11/30/24 12:30 UNV Insulin Human Regular ACHS SC 11/30/24 17:00 UNV Insulin Glargine 15 units QAM SC 12/01/24 07:00 UNV Laboratory Results Laboratory Tests 11/30/24 03:49 11/30/24 10:51 Chemistry Test 11/29/24 14:56 11/30/24 03:49 11/30/24 10:51 Calcium Level 9.3 mg/dL (8.7-10.4) 9.4 mg/dL (8.7-10.4) 9.7 mg/dL (8.7-10.4) Albumin 4.8 g/dL (3.2-4.8) Total Protein 7.3 g/dL (5.7-8.2) LFT Test 11/30/24 03:49 Alanine Aminotransferase (ALT) 18 U/L (7-40) Alkaline Phosphatase 78 U/L (46-116) Aspartate Amino Transferase (AST) 19 U/L (13-40) Total Bilirubin 1.0 mg/dL (0.2-1.0) Urinalysis Test 11/29/24 08:36 Urine Color Colorless (Yellow) Urine Clarity Clear (Clear) Urine pH 7.0 (5.0-9.0) Urine Specific [place] 1.019 (1.001-1.035) Urine Protein Trace (Negative) H Urine Ketones 4+ (Negative) H Urine Blood 3+ /uL (Negative) H Urine Nitrite Negative (Negative) Urine Bilirubin Negative (Negative) Urine Urobilinogen Normal mg/dL (Negative) Urine Leukocyte Esterase Negative /uL (Negative) Urine RBC 225 /hpf (0 - 3) Urine Microscopic WBC 5 /HPF (0-3) H Urine Squamous Epithelial Cells None seen /hpf (<5) Urine Bacteria None seen /hpf (None Seen) Urine Mucus Few (None Seen) Urine Glucose 4+ mg/dL (Normal) H Microbiology Microbiology Date/Time Source Procedure Growth Status 11/29/24 08:36 Voided Urine Urine Culture - Preliminary Resulted Assessment/Plan Assessment/Plan DKA Hematuria Nephrolithiasis Leukocytosis and possible sepsis Fatty liver Plan: Renal ultrasound. Insulin sliding scale. IV fluids. IV antibiotics. Urology consult. Further plan per orders Total critical care time 40 minutes Plan discussed with: Patient My Orders Orders - YELITZA SIBLEY MD Procedure Category Date Status Time Insulin R (Human) PHA 11/30/24 Logged (Insulin R) 17:00 Hemoglobin A1c LAB 11/30/24 Logged 13:04 Insulin Lantus PHA 12/01/24 Logged (Glargine) (Lantus) 07:00 Insulin Lantus PHA 11/30/24 Logged (Glargine) (Lantus) 13:15 Date of Service: Nov 30, 2024 Billing Provider: YELITZA SIBLEY MD Common Visit Codes: [id number] CARE 30-74 MIN YELITZA SIBLEY MD Nov 30, 2024 13:09
--- NOTE | 2024-11-30 13:43 | DVH ---
CLINICAL HISTORY: hematuria/ks TECHNIQUE: Complete ultrasound exam of the kidneys and bladder was performed. COMPARISON: None FINDINGS: The right kidney has normal echogenicity and measures 10.4 cm. There is no focal parenchymal abnormal ity or evidence for stone. There is no hydronephrosis. The left kidney has normal echogenicity and measures 11.7 cm. There is no focal parenchymal abnormal ity . There is a 3 mm nonobstructing left lower pole renal calculus. There is no hydronephrosis. The bladder is grossly unremarkable. IMPRESSION: 3 mm nonobstructing left lower pole renal calculus.
[2024-11-30] MEDS: INSULIN LANTUS (GLARGINE) 1 /0.01ml (100units/ml) SC ONE (14:19)
[2024-11-30] MEDS ORDERED: InsuLIN REG 1unit/0.01ml Soln (100units/ml) SC SCH ×3 (17:00→22:00)
[2024-11-30] MEDS ORDERED: ACCU-CHEK COMFORT CURVE STRIP VI SCH (17:00)
[2024-11-30] MEDS: ACCU-CHEK COMFORT CURVE STRIP VI SCH (17:00)
[2024-11-30] MEDS: InsuLIN REG 1unit/0.01ml Soln (100units/ml) SC SCH ×2 (17:40→21:34)
[2024-11-30] MEDS: HYDROcodone-ACET 5/325MG TAB PO PRN (17:45)
[2024-11-30] MEDS: SODIUM CHLORIDE 0.9% 1,000 ML IV SCH (21:23)
[2024-12-01] VITALS (8 sets, daily range): BP systolic 95–127; BP diastolic 43–86; PULSE 50–81; RESP 17–20; TEMP 97.7–98.2; O2SAT 97–99
[2024-12-01 05:22] LABS: Hematocrit 42.9 % (41.0-53.0); Hemoglobin 14.7 g/dL (13.5-17.5); Mean Corpuscular Hemoglobin 29.4 pg (28.0-32.0); Mean Corpuscular Volume 86.0 fL (80.0-100.0); Nucleated Red Blood Cells % 0.1 %
[2024-12-01 05:34] LABS: Alanine Aminotransferase 15 U/L (7-40); Alkaline Phosphatase 70 U/L (46-116); Anion Gap 13 (5-15); BUN/Creatinine Ratio 10.6 (10.0-20.0); Blood Urea Nitrogen 10 mg/dL (9-23); Calcium 8.9 mg/dL (8.7-10.4); Carbon Dioxide 23 mmol/L (20-31); Chloride 106 mmol/L (98-107); Potassium 3.6 mmol/L (3.5-5.1); Sodium 142 mmol/L (136-145)
[2024-12-01 05:35] LABS: Total Protein 6.7 g/dL (5.7-8.2)
[2024-12-01 05:36] LABS: Albumin 4.2 g/dL (3.2-4.8)
[2024-12-01 05:37] LABS: Bilirubin, Total 0.7 mg/dL (0.2-1.0)
[2024-12-01 05:40] LABS: Glucose 114 mg/dL (74-106)
[2024-12-01] MEDS: INSULIN LANTUS (GLARGINE) 1 /0.01ml (100units/ml) SC SCH (06:25)
--- NOTE | 2024-12-01 14:43 | DVHPN2 ---
Subjective Better Reviewed: Care Plan, H&P, Labs, Medications, Previous Orders, Radiology Changes from previous H/P or p: No Changes Gastrointestinal: Nausea, Vomiting, Abdominal Pain Objective Vitals Vital Signs Date Time Temp Pulse Resp B/P (MAP) Pulse Ox O2 Delivery O2 Flow Rate FiO2 12/01/24 12:23 97.8 71 20 106/43 (64) 98 97.8 12/01/24 08:00 Room Air* 0 21 Intake/Output Intake and Output 12/01/24 07:00 Intake Total 50 ml Balance 50 ml Intake IV Total 50 ml General Appearance: Alert, Oriented X3, Cooperative, No acute distress HEENT: Atraumatic Lungs: Clear to auscultation Cardiovascular: Regular rate Abdomen: Normal bowel sounds, Soft, No tenderness Medications Current Medications Medications Dose Ordered Sig/Osvaldo Route Start Time Stop Time Status Last Admin Dose Admin Acetaminophen/ Hydrocodone Bitart 1 tab Q4HP PRN PO 11/29/24 14:30 11/30/24 22:52 1 TAB Ondansetron HCl 4 mg Q4HP PRN IV 11/29/24 14:30 11/30/24 20:15 4 MG Acetaminophen 650 mg Q6HP PRN PO 11/29/24 14:30 Morphine Sulfate 2 mg Q4HPRN PRN IV 11/29/24 14:30 Cancel Olanzapine 5 mg HS PO 11/29/24 22:00 11/30/24 21:23 5 MG Ceftriaxone Sodium 50 ml @ 100 mls/hr DAILY@09 IV 11/30/24 09:00 12/01/24 08:37 100 MLS/HR Hydromorphone HCl 0.5 mg Q4HPRN PRN IV 11/29/24 19:00 11/30/24 14:32 0.5 MG Diagnostic Test (Pha) 1 strip ACHS 11/30/24 17:00 12/01/24 11:51 1 STRIP Insulin Human Regular HS SC 11/30/24 22:00 11/30/24 21:34 6 UNITS Insulin Human Regular AC SC 11/30/24 17:00 12/01/24 11:56 3 UNITS Dextrose 50 ml UD PRN IV 11/30/24 12:30 Insulin Glargine 15 units QAM SC 12/01/24 07:00 12/01/24 06:25 15 UNITS Sodium Chloride 1,000 ml @ 75 mls/hr [id number] IV 11/30/24 19:30 12/01/24 08:36 75 MLS/HR Laboratory Results Laboratory Tests 12/01/24 04:41 Chemistry Test 12/01/24 04:41 Albumin 4.2 g/dL (3.2-4.8) Calcium Level 8.9 mg/dL (8.7-10.4) Total Protein 6.7 g/dL (5.7-8.2) LFT Test 12/01/24 04:41 Alanine Aminotransferase (ALT) 15 U/L (7-40) Alkaline Phosphatase 70 U/L (46-116) Aspartate Amino Transferase (AST) 18 U/L (13-40) Total Bilirubin 0.7 mg/dL (0.2-1.0) Urinalysis Test 11/29/24 08:36 Urine Color Colorless (Yellow) Urine Clarity Clear (Clear) Urine pH 7.0 (5.0-9.0) Urine Specific [place] 1.019 (1.001-1.035) Urine Protein Trace (Negative) H Urine Ketones 4+ (Negative) H Urine Blood 3+ /uL (Negative) H Urine Nitrite Negative (Negative) Urine Bilirubin Negative (Negative) Urine Urobilinogen Normal mg/dL (Negative) Urine Leukocyte Esterase Negative /uL (Negative) Urine RBC 225 /hpf (0 - 3) Urine Microscopic WBC 5 /HPF (0-3) H Urine Squamous Epithelial Cells None seen /hpf (<5) Urine Bacteria None seen /hpf (None Seen) Urine Mucus Few (None Seen) Urine Glucose 4+ mg/dL (Normal) H Microbiology Microbiology Date/Time Source Procedure Growth Status 11/30/24 00:08 Nose MRSA Screen - Final Complete 11/29/24 13:14 Blood Blood Culture - Preliminary Resulted 11/29/24 08:36 Voided Urine Urine Culture - Final Complete Assessment/Plan Assessment/Plan DKA Hematuria Nephrolithiasis Leukocytosis and possible sepsis /bacteremia with Gram-negative heather in the blood Fatty liver Plan: Continue IV Rocephin. Urine culture. Unstable for transfer at this time. Plan discussed with: Patient My Orders Orders - YELITZA SIBLEY MD Procedure Category Date Status Time * Urology Consult CONS 11/30/24 Transmitted 16:23 Sodium Chloride 0.9% PHA 11/30/24 In Process 19:30 Urine Bacterial SAIMA 12/01/24 Logged Culture 13:26 Date of Service: Dec 01, 2024 Billing Provider: YELITZA SIBLEY MD Common Visit Codes: [id number] INP/OBS CARE(HIGH) YELITZA SIBLEY MD Dec 01, 2024 14:43
[2024-12-02] VITALS (7 sets, daily range): BP systolic 104–126; BP diastolic 51–80; PULSE 50–67; RESP 18; TEMP 36.4; O2SAT 96–99
[2024-12-02 05:56] LABS: Hematocrit 41.4 % (41.0-53.0); Hemoglobin 14.3 g/dL (13.5-17.5); Mean Corpuscular Hemoglobin 29.8 pg (28.0-32.0); Mean Corpuscular Volume 86.2 fL (80.0-100.0); Nucleated Red Blood Cells % 0.1 %
--- NOTE | 2024-12-02 14:03 | DVHINCON2 ---
Date of service: Dec 02, [address] Sibley Reason for Consultation hematuria History of Present Illness History Source: Patient, RN Notes, MD Notes, Old Records Exam Limitations: No limitations HPI 24 yo male with DMI admitted 11/29/24 for abdominal pain, DKA, and dehydration. Pt reports his insulin pump stopped working. YOSI has resolved. Leukocytosis has resolved. UCX no growth. CT shows fatty liver 2 mm non obstructing left renal calculus. Home Meds Active Scripts Metoclopramide Hcl (Reglan) 5 Mg Tab, 5 MG PO TIDP PRN for 7 Days, #21 TAB 0 Refills Prov:HAI KHAN MD 10/21/24 Reported Medications Olanzapine (Zyprexa) 5 Mg Tab, 5 MG PO HS 11/12/21 Insulin Lispro (Human) (Humalog) 100 Unit/Ml Inj, SC 11/12/21 Quetiapine Fumerate (Seroquel) 50 Mg Tab, 75 MG PO HS 11/12/21 Insulin Lispro (Humalog Kwikpen) 100 Unit/Ml Inj, SC 11/12/21 Past Medical History Patient Family History: Patient reports no known family medical history. H&P Exam Vital Signs Vital Signs Date Time Temp Pulse Resp B/P (MAP) Pulse Ox O2 Delivery O2 Flow Rate FiO2 12/02/24 08:24 98.3 58 18 104/61 (75) 98 98.3 12/02/24 08:00 Room Air* 0 21 General Appeara: Well developed, Well nourished, Normal Appearance Labs/Xrays [place] [id number] Ph: [phone] DIAGNOSTIC IMAGING Diagnostic Imaging Report : [id number] Signed PATIENT: JONATHAN BANEGAS ACCT: [id number] UNIT: [id number] : 2000 LOC: ER ROOM / BED: / AGE / SEX: 24 / M ADM STATUS: REG ER SERVICE ORDERING PHYSICIAN: ELZBIETA ANDRADE RESIDENT PROCEDURE(s): ABPL - CT AB PEL WO CON-NO ORAL OR IV REASON: Abdomial pain ORDER NUMBER(s): [id number], ACCESSION NUMBER(s): [id number] CLINICAL HISTORY: Abdomial pain TECHNIQUE: CT of the abdomen and pelvis was performed without IV contrast. This exam was performed according to our departmental dose optimization program. Up-to-date CT equipment and radiation dose reduction techniques are utilized as appropriate. CTDI 9.8 DLP 484 COMPARISON: CT ABDOMEN WITHOUT CONTRAST on DOS: 11/08/22, CT ABD PELVIS WO CON TRAST on DOS: 02/03/21 FINDINGS: Abdomen/Pelvis: The spleen, pancreas, adrenal glands, gallbladder, right kidney, bladder, and prostate gland are grossly unremarkable. There is diffuse hepatic steatosis. There is a 2 mm nonobstructing left renal calculus. The abdominal aorta is normal in course and caliber. There are no significant atherosclerotic calcifications. There is no free intraperitoneal air or fluid. There is no enlarged abdominal pelvic lymph node. There is no bowel wall thickening or dilatation. The appendix is not seen, likely surgically absent. Other: The imaged lower thorax is unremarkable. No acute osseous abnormality is evident. Impression: No acute noncontrast CT abnormality in the abdomen or pelvis. Diffuse hepatic steatosis. Punctate nonobstructing left renal calculus. ATED BY: CRYSTAL TOPETE MD DICTATED DATE/TIME: 11/29/24956 SIGNED BY: CRYSTAL TOPETE MD SIGNED DATE/TIME: 11/29/24956 CC: [place] [address] Ph: [phone] DIAGNOSTIC IMAGING Diagnostic Imaging Report : [id number] Signed PATIENT: JONATHAN BANEGAS ACCT: [id number] UNIT: [id number] : 2000 LOC: OVERFLOW ROOM / BED: [address] [place] [address] / AGE / SEX: 24 / M ADM STATUS: ADM IN SERVICE 1307 ORDERING PHYSICIAN: YELITZA SIBLEY MD PROCEDURE(s): KIDUS - KIDNEY REASON: hematuria/ks ORDER NUMBER(s): [id number], ACCESSION NUMBER(s): [id number] CLINICAL HISTORY: hematuria/ks TECHNIQUE: Complete ultrasound exam of the kidneys and bladder was performed. COMPARISON: None FINDINGS: The right kidney has normal echogenicity and measures 10.4 cm. There is no focal parenchymal abnormality or evidence for stone. There is no hydronephrosis. The left kidney has normal echogenicity and measures 11.7 cm. There is no focal parenchymal abnormality . There is a 3 mm nonobstructing left lower pole renal calculus. There is no hydronephrosis. The bladder is grossly unremarkable. IMPRESSION: 3 mm nonobstructing left lower pole renal calculus. ATED BY: CRYSTAL TOPETE MD DICTATED DATE/TIME: 11/30/24 1341 SIGNED BY: CRYSTAL TOPETE MD SIGNED DATE/TIME: 11/30/24 1341 CC: Labs Test 12/02/24 12:13 12/02/24 04:58 12/01/24 04:41 11/30/24 03:49 Range/Units POC Glucose 121 H 70-106 mg/dl White Blood Count 8.2 # 4.4-10.8 10^3/uL Red Blood Count 4.80 4.5-5.90 10^6/uL Hemoglobin 14.3 13.5-17.5 g/dL Hematocrit 41.4 41.0-53.0 % Mean Corpuscular Volume 86.2 80.0-100.0 fL Mean Corpuscular Hemoglobin 29.8 28.0-32.0 pg Mean Corpuscular Hemoglobin Concent 34.5 32.0-36.0 g/dL Red Cell Distribution Width 13.3 11.8-14.3 % Platelet Count 202 140-450 10^3/uL Mean Platelet Volume 9.0 6.9-10.8 fL Neutrophils (%) (Auto) 47.0 37.0-80.0 % Lymphocytes (%) (Auto) 40.8 10.0-50.0 % Monocytes (%) (Auto) 8.5 0.0-12.0 % Eosinophils (%) (Auto) 2.5 0.0-7.0 % Basophils (%) (Auto) 1.2 0.0-2.0 % Neutrophils # (Auto) 3.8 1.6-8.6 10 ^3/uL Lymphocytes # (Auto) 3.3 0.4-5.4 10 ^3/uL Monocytes # (Auto) 0.7 0-1.3 10 ^3/uL Eosinophils # (Auto) 0.2 0-0.8 10 ^3/uL Basophils # (Auto) 0.1 0-0.2 10 ^3/uL Nucleated Red Blood Cells 0.1 % Erythrocyte Sedimentation Rate 2 0-20 mm/hr Sodium Level 142 136-145 mmol/L Potassium Level 3.6 3.5-5.1 mmol/L Chloride Level 106 98-107 mmol/L Carbon Dioxide Level 23 20-31 mmol/L Anion Gap 13 5-15 Blood Urea Nitrogen 10 9-23 mg/dL Creatinine 0.94 0.700-1.30 mg/dL Glomerular Filtration Rate Calc 118 >90 mL/min BUN/Creatinine Ratio 10.6 10.0-20.0 Serum Glucose 114 H 74-106 mg/dL Calcium Level 8.9 8.7-10.4 mg/dL Total Bilirubin 0.7 0.2-1.0 mg/dL Aspartate Amino Transferase (AST) 18 13-40 U/L Alanine Aminotransferase (ALT) 15 7-40 U/L Alkaline Phosphatase 70 46-116 U/L Total Protein 6.7 5.7-8.2 g/dL Albumin 4.2 3.2-4.8 g/dL Hemoglobin A1c 7.7 H <5.7 % A1C Test 11/29/24 13:14 11/29/24 13:08 11/29/24 10:30 11/29/24 09:35 Range/Units Lactic Acid Level 4.7 *H 0.4-2.0 mmol/L Blood Gas Specimen Type Arterial Blood Gas Sample Site Right radial Blood Gas Patient Temperature 37.0 Arterial Blood Date Drawn [id number] Arterial Blood pH 7.476 H 7.350-7.450 Arterial Blood Partial Pressure CO2 15.7 *L 35.0-48.0 mmHg Arterial Blood Partial Pressure O2 115.9 H 83.0-108.0 mmHg Arterial Blood HCO3 11.3 L 21.0-28.0 mmol/L Arterial Blood Oxygen Saturation 98.3 H 94.0-98.0 % Arterial Blood Base Excess -8.8 L -2.0-3.0 mmol/L Arterial Blood Oxyhemoglobin 97.2 94.0-98.0 % Arterial Blood Carboxyhemoglobin 0.5 0.5-1.5 % Arterial Blood Methemoglobin 0.6 0.0-1.5 % Matias Test Yes Blood Gas Total Hemoglobin 15.40 13.5-17.5 g/dL Blood Gas Modality Room air FiO2 % 21.0 Blood Gas Critical Value Read Back yes Blood Gas Notified Whom Blood Gas Notified Time [id number] Blood Gas Notified By junior web developer marisa martin Beta-Hydroxybutyric Acid 2.220 H < 0.4 mmol/L Differential Total Cells Counted 100.0 100 Neutrophils % (Manual) 82 H 37.0-80.0 Band Neutrophils % (Manual) 5 Lymphocytes % (Manual) 5 L 10.0-50.0 Monocytes % (Manual) 8 0-12 Eosinophils % (Manual) 0 0-7 Basophils % (Manual) 0 0.0-2.0 Metamyelocytes % (manual) 0 Myelocytes % (Manual) 0 Promyelocytes % (Manual) 0 Blast Cells % (Manual) 0 Reactive Lymphocytes 0 Platelet Estimate Adequate Magnesium Level 1.7 1.6-2.6 mg/dL C-Reactive Protein High Sensitivity 0.26 <1.0 mg/dL Lipase 26 12-53 U/L Test 11/29/24 08:36 Range/Units Urine Color Colorless Yellow Urine Clarity Clear Clear Urine pH 7.0 5.0-9.0 Urine Specific [place] 1.019 1.001-1.035 Urine Protein Trace H Negative Urine Ketones 4+ H Negative Urine Blood 3+ H Negative /uL Urine Nitrite Negative Negative Urine Bilirubin Negative Negative Urine Urobilinogen Normal Negative mg/dL Urine Leukocyte Esterase Negative Negative /uL Urine RBC 225 0 - 3 /hpf Urine Microscopic WBC 5 H 0-3 /HPF Urine Squamous Epithelial Cells None seen <5 /hpf Urine Bacteria None seen None Seen /hpf Urine Mucus Few None Seen Urine Glucose 4+ H Normal mg/dL Microbiology Date/Time Source Procedure Growth Status 12/01/24 18:06 Voided Urine Urine Culture - Preliminary Resulted 11/30/24 00:08 Nose MRSA Screen - Final Complete 11/29/24 13:14 Blood Blood Culture - Preliminary Resulted Assessment/Plan Problem List: (1) Calculus of kidney (2) Diabetes mellitus (3) Dehydration (4) Uncontrolled diabetes mellitus (5) DKA (diabetic ketoacidosis) Plan no acute urology intervention indicated maintain oral hydration 2-3 liters daily outpt renal US in 4-6 weeks avoid NSAIDs urology signing off Plan discussed with: Patient, Other RAEANN LU NP Dec 02, 2024 14:03
[2024-12-02] MEDS ORDERED: AUG875T PO (14:39)
[2024-12-02] MEDS ORDERED: PROB1CAP70 PO (14:39)
--- NOTE | 2024-12-02 14:39 | DVHDS2 ---
Discharge Summary Date of Admission Nov 29, 2024 at 14:28 Date of Discharge: Dec 02, 2024 Labs/Diagnostic Data: Laboratory Results Test 12/02/24 12:13 12/02/24 04:58 12/01/24 04:41 11/30/24 03:49 POC Glucose 121 mg/dl (70-106) White Blood Count 8.2 10^3/uL (4.4-10.8) Red Blood Count 4.80 10^6/uL (4.5-5.90) Hemoglobin 14.3 g/dL (13.5-17.5) Hematocrit 41.4 % (41.0-53.0) Mean Corpuscular Volume 86.2 fL (80.0-100.0) Mean Corpuscular Hemoglobin 29.8 pg (28.0-32.0) Mean Corpuscular Hemoglobin Concent 34.5 g/dL (32.0-36.0) Red Cell Distribution Width 13.3 % (11.8-14.3) Platelet Count 202 10^3/uL (140-450) Mean Platelet Volume 9.0 fL (6.9-10.8) Neutrophils (%) (Auto) 47.0 % (37.0-80.0) Lymphocytes (%) (Auto) 40.8 % (10.0-50.0) Monocytes (%) (Auto) 8.5 % (0.0-12.0) Eosinophils (%) (Auto) 2.5 % (0.0-7.0) Basophils (%) (Auto) 1.2 % (0.0-2.0) Neutrophils # (Auto) 3.8 10 ^3/uL (1.6-8.6) Lymphocytes # (Auto) 3.3 10 ^3/uL (0.4-5.4) Monocytes # (Auto) 0.7 10 ^3/uL (0-1.3) Eosinophils # (Auto) 0.2 10 ^3/uL (0-0.8) Basophils # (Auto) 0.1 10 ^3/uL (0-0.2) Nucleated Red Blood Cells 0.1 % Erythrocyte Sedimentation Rate 2 mm/hr (0-20) Sodium Level 142 mmol/L (136-145) Potassium Level 3.6 mmol/L (3.5-5.1) Chloride Level 106 mmol/L (98-107) Carbon Dioxide Level 23 mmol/L (20-31) Anion Gap 13 (5-15) Blood Urea Nitrogen 10 mg/dL (9-23) Creatinine 0.94 mg/dL (0.700-1.30) Glomerular Filtration Rate Calc 118 mL/min (>90) BUN/Creatinine Ratio 10.6 (10.0-20.0) Serum Glucose 114 mg/dL (74-106) Calcium Level 8.9 mg/dL (8.7-10.4) Total Bilirubin 0.7 mg/dL (0.2-1.0) Aspartate Amino Transferase (AST) 18 U/L (13-40) Alanine Aminotransferase (ALT) 15 U/L (7-40) Alkaline Phosphatase 70 U/L (46-116) Total Protein 6.7 g/dL (5.7-8.2) Albumin 4.2 g/dL (3.2-4.8) Hemoglobin A1c 7.7 % A1C (<5.7) Test 11/29/24 13:14 11/29/24 13:08 11/29/24 10:30 11/29/24 09:35 Lactic Acid Level 4.7 mmol/L (0.4-2.0) Blood Gas Specimen Type Arterial Blood Gas Sample Site Right radial Blood Gas Patient Temperature 37.0 Arterial Blood Date Drawn [id number] Arterial Blood pH 7.476 (7.350-7.450) Arterial Blood Partial Pressure CO2 15.7 mmHg (35.0-48.0) Arterial Blood Partial Pressure O2 115.9 mmHg (83.0-108.0) Arterial Blood HCO3 11.3 mmol/L (21.0-28.0) Arterial Blood Oxygen Saturation 98.3 % (94.0-98.0) Arterial Blood Base Excess -8.8 mmol/L (-2.0-3.0) Arterial Blood Oxyhemoglobin 97.2 % (94.0-98.0) Arterial Blood Carboxyhemoglobin 0.5 % (0.5-1.5) Arterial Blood Methemoglobin 0.6 % (0.0-1.5) Matias Test Yes Blood Gas Total Hemoglobin 15.40 g/dL (13.5-17.5) Blood Gas Modality Room air FiO2 % 21.0 Blood Gas Critical Value Read Back yes Blood Gas Notified Whom Blood Gas Notified Time [id number] Blood Gas Notified By second baller marisa martin Beta-Hydroxybutyric Acid 2.220 mmol/L (< 0.4) Differential Total Cells Counted 100.0 (100) Neutrophils % (Manual) 82 (37.0-80.0) Band Neutrophils % (Manual) 5 Lymphocytes % (Manual) 5 (10.0-50.0) Monocytes % (Manual) 8 (0-12) Eosinophils % (Manual) 0 (0-7) Basophils % (Manual) 0 (0.0-2.0) Metamyelocytes % (manual) 0 Myelocytes % (Manual) 0 Promyelocytes % (Manual) 0 Blast Cells % (Manual) 0 Reactive Lymphocytes 0 Platelet Estimate Adequate Magnesium Level 1.7 mg/dL (1.6-2.6) C-Reactive Protein High Sensitivity 0.26 mg/dL (<1.0) Lipase 26 U/L (12-53) Test 11/29/24 08:36 Urine Color Colorless (Yellow) Urine Clarity Clear (Clear) Urine pH 7.0 (5.0-9.0) Urine Specific [place] 1.019 (1.001-1.035) Urine Protein Trace (Negative) Urine Ketones 4+ (Negative) Urine Blood 3+ /uL (Negative) Urine Nitrite Negative (Negative) Urine Bilirubin Negative (Negative) Urine Urobilinogen Normal mg/dL (Negative) Urine Leukocyte Esterase Negative /uL (Negative) Urine RBC 225 /hpf (0 - 3) Urine Microscopic WBC 5 /HPF (0-3) Urine Squamous Epithelial Cells None seen /hpf (<5) Urine Bacteria None seen /hpf (None Seen) Urine Mucus Few (None Seen) Urine Glucose 4+ mg/dL (Normal) Other Laboratory Tests 12/02/24 04:58 12/01/24 04:41 Brief Hx & Hospital Course: 24-year-old male with past medical history of diabetes type 1, DKA, and appendectomy who presents to the ED with abdominal pain, nausea, and vomiting that started this morning. Patient reports that he has a CGM and insulin pump on his left lower quadrant abdomen, reports that his insulin pump stopped working this morning around 1:00 a.m once he got out of the shower. Patient also reports that he has been vomiting nonstop food contents and bile like color, unknown amount of times. Patient also reports that he uses marijuana and vapes. 12/02: Patient had nephrolithiasis, Urology seen outpatient follow up. Patient had DKA, type 1 diabetic, on pump monitor, pump was not functioning after lunch hour. Patient is Diagnosis: Gastroenteritis, infectious etiology likely Leukocytosis Neutrophilia Early DKA Type 1 diabetes, insulin pump Asymptomatic bradycardia Plan: Augmentin 875 twice daily for 3 days , Florastor daily for 7 days. Close follow up with endocrinology for diabetes , insulin pump function Continue other home medication -follow up with PCP Condition at Discharge: Fair Final Diagnosis/Problems List Gastroenteritis, infectious etiology likely Leukocytosis Neutrophilia Early DKA Type 1 diabetes, insulin pump Asymptomatic bradycardia Discharge Disposition: Home Discharge Instruct/Medications Scheduled Olanzapine (Zyprexa), 5 MG PO HS, (Reported) Quetiapine Fumerate (Seroquel), 75 MG PO HS, (Reported) Scheduled PRN Metoclopramide Hcl (Reglan), 5 MG PO TIDP PRN Miscellaneous Medications Insulin Lispro (Humalog Kwikpen), SC, (Reported) Insulin Lispro (Human) (Humalog), SC, (Reported) Discharge Statement: "Patient was advised to return to the ER or call 911 if any headaches, dizziness, shortness of breath, chest pain, abdominal pain, bleeding, fevers, or worsening of medical condition. Patient was counseled about treatment plan, medications, possible side effects, patientverbalized understanding. All questions were answered to the best of my ability. This discharge took greater then 30 minutes in planning, reviewing documentation, counseling the patient, and discussing with other team members." ASSESSMENT ASSESSMENT Assessment Date of Service: Dec 02, 2024 Billing Provider: HAI KHAN MD Common Visit Codes: [id number] DISCH DAY >30min HAI KHAN MD Dec 02, 2024 14:39
== END 2024-12-02 17:15 | disposition home or self-care (01) | DRG 720 ==
LOC: EDBD 08:13 → ER 08:13 → OVERFLOW 14:28 → TELE-WESTW 11-30 15:57
PROVIDERS: ADMIT Student in an Organized Health Care Education/Training Program; ATTEND Student in an Organized Health Care Education/Training Program
DX: A41.9 Sepsis, unspecified organism (principal); N17.0 Acute kidney failure with tubular necrosis; E10.10 Type 1 diabetes mellitus with ketoacidosis without coma; E87.5 Hyperkalemia; N20.0 Calculus of kidney; E80.6 Other disorders of bilirubin metabolism; K76.0 Fatty (change of) liver, not elsewhere classified; A09 Infectious gastroenteritis and colitis, unspecified; Z96.41 Presence of insulin pump (external) (internal); E86.0 Dehydration; R11.16 Cannabis hyperemesis syndrome; I10 Essential (primary) hypertension; D72.829 Elevated white blood cell count, unspecified; F12.90 Cannabis use, unspecified, uncomplicated; R00.1 Bradycardia, unspecified; F17.290 Nicotine dependence, other tobacco product, uncomplicated; Z79.4 Long term (current) use of insulin; Z90.49 Acquired absence of other specified parts of digestive tract
CPT/HCPCS: 36415; 36600; 74176; 76775; 80048; 80053; 81001; 82010; 82805; 82962; 83036; 83605; 83690; 83735; 85007; 85025; 85027; 85652; 86141; 87040; 87081; 87086; 96361; 96374; 96375; 99291; G0378; J1815; J2405

== ENCOUNTER 2025-01-01 09:11 | Emergency (ER) | payer MEDICAID ==
[~2025-01-01] VITALS: Ht 175.3 cm; Wt 83.2 kg
[~2025-01-01 09:11] MED LIST changes: +AUG875T PO; +PROB1CAP70 PO
--- NOTE | 2025-01-01 10:13 | ED.PDOC ---
GI ASSESSMENT HPI Comments This is a 24 year old male presenting to the ED with chief complaint of abdominal pain. Patient reports that he has started to experience suprapubic abdominal pain with associated nausea and vomiting since this morning, worsening over time. Patient requests Dilaudid in the ED for pain relief as that was what he was given during his last admission. Patient denies any diarrhea, chest pain, SOB, fever, chills, or flank pain. Chief Complaint: Abdominal Pain Time Seen by MD: 10:11 Primary Care Provider: Marcel Reviewed Notes: Nurses Notes, Medications, Allergies Allergies: Coded Allergies: NO KNOWN ALLERGIES (Unverified , 02/03/21) Home Meds Active Scripts Probiotic Product (Florastor Plus) 1 Cap Cap, 1 CAP PO DAILY PRN for 7 Days, #7 CAP Prov:HAI KHAN MD 12/02/24 Amoxicillin & Pot Clavulanate (AUGMENTIN TABLET) 875 Mg Tb, 875 MG PO BID for 3 Days, #6 TAB Prov:HAI KHAN MD 12/02/24 Metoclopramide Hcl (Reglan) 5 Mg Tab, 5 MG PO TIDP PRN for 7 Days, #21 TAB 0 Refills Prov:HAI KHAN MD 10/21/24 Reported Medications Olanzapine (Zyprexa) 5 Mg Tab, 5 MG PO HS 11/12/21 Insulin Lispro (Human) (Humalog) 100 Unit/Ml Inj, SC 11/12/21 Quetiapine Fumerate (Seroquel) 50 Mg Tab, 75 MG PO HS 11/12/21 Insulin Lispro (Humalog Kwikpen) 100 Unit/Ml Inj, SC 11/12/21 Information Source: Patient Mode of Arrival: Ambulatory Timing: Hours Duration: Since onset Prehospital treatment: None Quality: Sharp Vomitus: Watery Stool: Normal Severity: Moderate Recent: None Recent Hx of: Diabetes Pain Location: Suprapubic Modifying Factors: Nothing Associated sign and symptoms: Nausea, Vomiting, Abdominal Pain Past Medical History PAST MEDICAL HISTORY: DM Surgical History: Appendectomy Family History Family History: Unknown Social History Smoker: Other Alcohol: Occasionally Drugs: Marijuana Lives In: Home Constitutional: denies: chills, diaphoresis, fatigue, fever, malaise, sweats, weakness, others EENTM: denies: blurred vision, double vision, ear bleeding, ear discharge, ear drainage, ear pain, ear ringing, eye pain, eye redness, hearing loss, mouth pain, mouth swelling, nasal discharge, nose bleeding, nose congestion, nose pain, photophobia, tearing, throat pain, throat swelling, voice changes, others Respiratory: denies: cough, hemoptysis, orthopnea, SOB at rest, shortness of breath, SOB with excertion, stridor, wheezing, others Cardiovascular: denies: chest pain, dizzy spells, diaphoresis, Dyspnea on exertion, edema, irregular heart beat, left arm pain, lightheadedness, palpitations, PND, syncope, others Gastrointestinal: reports: abdominal pain, nausea, vomiting; denies: abdomen distended, blood streaked bowels, constipated, diarrhea, dysphagia, difficulty swallowing, hematemesis, melena, poor appetite, poor fluid intake, rectal bleeding, rectal pain, others Genitourinary: denies: burning, dysuria, flank pain, frequency, hematuria, incontinence, penile discharge, penile sore, pain, testicle pain, testicle swelling, urgency, others Neurological: denies: dizziness, fainting, headache, left sided numbness, left sided weakness, numbness, paresthesia, pre-existing deficit, right sided numbness, right sided weakness, seizure, speech problems, tingling, tremors, weakness, others Musculoskeletal: denies: back pain, gout, joint pain, joint swelling, muscle pain, muscle stiffness, neck pain, others Integumetry: denies: bruises, change in color, change in hair/nails, dryness, laceration, lesions, lumps, rash, wounds, others Allergic/Immunocompromised: denies: Difficulty Healing, Frequent Infections, Hives, Itching, others Hematologic/Lymphatic: denies: anemia, blood clots, easy bleeding, easy bruising, swollen glands, others Endocrine: denies: excessive hunger, excessive sweating, excessive thirst, excessive urination, flushing, intolerance to cold, intolerance to heat, unexplained weight gain, unexplained weight loss, others Psychiatric: denies: anxiety, bipolar disorder, depression, hopeless, panic disorder, schizophrenia, sleepless, suicidal, others All Other Systems: Reviewed and Negative Physical Exam General Appearance: Moderate Distress, Normal HEENT: Normal ENT Inspection, PERRL/EOMI, Pharynx Normal, TMs Normal Neck: Full Range of Motion, Non-Tender, Normal, Normal Inspection Respiratory: Chest Non-Tender, Lungs Clear, No Accessory Muscle Use, No Respiratory Distress, Normal Breath Sounds Cardiovascular: No Edema, No JVD, No Murmur, No Gallop, Normal Peripheral Pulses, Regular Rate/Rhythm Breast Exam: Deferred Gastrointestinal: Diffuse, Epigastric, No Organomegaly, Normal Bowel Sounds, Tenderness, Other (Diaphoresis) Genitalia: Deferred Pelvic: Deferred Rectal: Deferred Extremities: No calf tenderness, Normal capillary refill, Normal inspection, Normal range of motion, Non-tender, No pedal edema Neurologic: Alert, drawing tracer II-XII nml as Tested, No Motor Deficits, Normal Affect, Normal Mood, No Sensory Deficits Cerebellar Function: Normal Reflexes: Normal Skin: Dry, Normal Color, Warm Peripheral Pulses: 1+ carotid (R), 1+ carotid (L) Lymphatic: No Adenopathy Was a procedure done? Was a procedure done?: No GI differential Dx Differential Diagnosis: Gastritis/PUD, Gastroenteritis, Inflammatory BD, Pancreatitis, Dehydration, Diabetes/ DKA, Drug toxicity, Electrolyte Imbalance, Anemia, Stress Ulcer (ndrome) Other Differential Diagnosis Cannabinoid hyperemesis syndrome X-Ray, Labs, Meds, VS Vital Signs Date Time Temp Pulse Resp B/P (MAP) Pulse Ox O2 Delivery O2 Flow Rate FiO2 01/01/25 10:51 97.4 82 18 143/65 (91) 100 97.4 01/01/25 10:51 82 18 100 Room Air 01/01/25 09:13 97.7 87 25 152/106 100 97.7 Lab Test 01/01/25 14:04 01/01/25 10:18 Range/Units Urine Color Light-yellow Yellow Urine Clarity Turbid H Clear Urine pH 7.0 5.0-9.0 Urine Specific [place] 1.021 1.001-1.035 Urine Protein Trace H Negative Urine Ketones 3+ H Negative Urine Blood 3+ H Negative /uL Urine Nitrite Negative Negative Urine Bilirubin Negative Negative Urine Urobilinogen Normal Negative mg/dL Urine Leukocyte Esterase Negative Negative /uL Urine RBC 1560 0 - 3 /hpf Urine Microscopic WBC 3 0-3 /HPF Urine Squamous Epithelial Cells Few <5 /hpf Urine Bacteria None seen None Seen /hpf Urine Mucus Few None Seen Urine Glucose 4+ H Normal mg/dL Urine Opiates Screen Neg NEGATIVE Urine Fentanyl Screen Neg NEGATIVE Urine Barbiturates Screen Neg NEGATIVE Urine Phencyclidine Screen Neg NEGATIVE Urine Amphetamines Screen Neg NEGATIVE Urine Benzodiazepines Screen Neg NEGATIVE Urine Cocaine Screen Neg NEGATIVE Urine Cannabinoids Screen Pos NEGATIVE White Blood Count 14.0 H 4.4-10.8 10^3/uL Red Blood Count 5.61 4.5-5.90 10^6/uL Hemoglobin 16.3 13.5-17.5 g/dL Hematocrit 49.3 41.0-53.0 % Mean Corpuscular Volume 87.9 80.0-100.0 fL Mean Corpuscular Hemoglobin 29.1 28.0-32.0 pg Mean Corpuscular Hemoglobin Concent 33.1 32.0-36.0 g/dL Red Cell Distribution Width 14.2 11.8-14.3 % Platelet Count 361 140-450 10^3/uL Mean Platelet Volume 9.0 6.9-10.8 fL Neutrophils (%) (Auto) 79.7 37.0-80.0 % Lymphocytes (%) (Auto) 12.5 10.0-50.0 % Monocytes (%) (Auto) 7.2 0.0-12.0 % Eosinophils (%) (Auto) 0.2 0.0-7.0 % Basophils (%) (Auto) 0.4 0.0-2.0 % Neutrophils # (Auto) 11.1 H 1.6-8.6 10 ^3/uL Lymphocytes # (Auto) 1.7 0.4-5.4 10 ^3/uL Monocytes # (Auto) 1.0 0-1.3 10 ^3/uL Eosinophils # (Auto) 0 0-0.8 10 ^3/uL Basophils # (Auto) 0.1 0-0.2 10 ^3/uL Nucleated Red Blood Cells 0.0 % Sodium Level 140 136-145 mmol/L Potassium Level 4.7 3.5-5.1 mmol/L Chloride Level 103 98-107 mmol/L Carbon Dioxide Level 22 20-31 mmol/L Anion Gap 15 5-15 Blood Urea Nitrogen 10 9-23 mg/dL Creatinine 1.13 0.700-1.30 mg/dL Glomerular Filtration Rate Calc 94 >90 mL/min BUN/Creatinine Ratio 8.8 L 10.0-20.0 Serum Glucose 231 H 74-106 mg/dL Calcium Level 10.2 8.7-10.4 mg/dL Magnesium Level 1.8 1.6-2.6 mg/dL Lipase 38 12-53 U/L Current Medications Medications (Trade) Dose Ordered Sig/Osvaldo Route Start Time Stop Time Status Last Admin Sodium Chloride 1,000 ml @ 1,000 mls/hr Q1H ONCE IVB 01/01/25 10:15 01/01/25 11:14 DC 01/01/25 10:38 Al Hydrox/Mg Hydrox/Simethicone (Maalox Plus) 30 ml ONCE ONCE PO 01/01/25 10:15 01/01/25 10:16 DC 01/01/25 12:06 Belladonna Alkaloids/ Phenobarbital ( Elixir) 5 ml ONCE ONCE PO 01/01/25 10:15 01/01/25 10:16 DC 01/01/25 10:15 Lidocaine HCl (Xylocaine 2% Viscous) 15 ml ONCE ONCE PO 01/01/25 10:15 01/01/25 10:16 DC 01/01/25 10:15 Haloperidol Lactate (Haldol) 5 mg ONCE ONCE IM 01/01/25 11:00 01/01/25 11:01 DC 01/01/25 11:13 X-Ray, Labs, Meds, VS Comment Course in the emergency department eventful patient came in with a severe epigastric pain nausea and vomiting not the 1st time it happens in his said it is does use marijuana cocaine and acid he is a [employer] member CBC [id number] with 79% neutrophils normal H&H CMP normal except for blood sugar of 231 Magnesium 1.8 Lipase 38 Urine shows 3+ ketone 3+ blood and 4+ glucose UDS positive cannabinoid Patient is better with a discharged home to follow up with his PCP Time of 1ST Reevaluation: 11:10 Reevaluation 1ST: Improved Time of 2ND Reevaluation: 16:02 Reevaluation 2ND: Improved Consultation: PCP Patient Education/Counseling: Diagnosis, Treatment, Prognosis, Need For Follow Up Family Education/Counseling: Diagnosis, Treatment, Prognosis, Need For Follow Up, No Family Present SEPSIS Sepsis Screen Date sepsis recognized/suspect: Jan 01, 2025 Time Sepsis recognized/suspect: 914 Recent Procedure: No On Antibiotic Therapy: No Respiratory Rate >20: No Heart Rate >90: No Temp<36 C (96.8 F) or >38.3 C: No SBP <90 or MAP <65 mmHG: No New Acute Mental Status Change: No Is the patient on CPAP, BIPAP,: No Vital Signs Date Time Temp Pulse Resp B/P (MAP) Pulse Ox O2 Delivery O2 Flow Rate FiO2 01/01/25 10:51 97.4 82 18 143/65 (91) 100 97.4 01/01/25 10:51 82 18 100 Room Air 01/01/25 09:13 97.7 87 25 152/106 100 97.7 Laboratory Tests Test 01/01/25 10:18 White Blood Count 14.0 10^3/uL (4.4-10.8) H Medications Medications Dose Ordered Sig/Osvaldo Route Start Time Stop Time Status Last Admin Dose Admin Al Hydrox/Mg Hydrox/Simethicone 30 ml ONCE ONCE PO 01/01/25 10:15 01/01/25 10:16 DC 01/01/25 12:06 Belladonna Alkaloids/ Phenobarbital 5 ml ONCE ONCE PO 01/01/25 10:15 01/01/25 10:16 DC 01/01/25 10:15 Haloperidol Lactate 5 mg ONCE ONCE IM 01/01/25 11:00 01/01/25 11:01 DC 01/01/25 11:13 Lidocaine HCl 15 ml ONCE ONCE PO 01/01/25 10:15 01/01/25 10:16 DC 01/01/25 10:15 Sodium Chloride 1,000 ml @ 1,000 mls/hr Q1H ONCE IVB 01/01/25 10:15 01/01/25 11:14 DC 01/01/25 10:38 Departure 1 Departure Time of Disposition: 16:02 Impression: Primary Impression: Acute epigastric pain Additional Impression: Cannabinoid hyperemesis syndrome Disposition: 01 HOME / SELF CARE / HOMELESS Condition: Fair Additional Instructions: Push fluids follow up with your PCP stop using marijuana e-Prescriptions Aluminum Hydroxide-Mag Carb (Gaviscon Extra Strength) 1 Chw Chw 1 CHW PO TID for 10 Days, #30 TAB.CHEW Prov: CLAU PAZ MD 01/01/25 Discharged With: Self Critical Care Note Critical Care Time?: No Stability Stability form required: No Heart Score Heart Score: Heart Score Response (Comments) Value History N/A 0 EKG N/A 0 Age <45 0 Risk Factors No known risk factors 0 Troponin N/A 0 Total 0 I personally scribed for CLAU PAZ MD ([email or web address]) on 01/01/25 at 10:13. Electronically submitted by Sami Reyna ([email or web address]). CLAU PAZ MD Jan 01, 2025 10:13
[2025-01-01] MEDS: LIDOCAINE VISCOUS 2% 15ML UD PO ONE (10:15)
[2025-01-01] MEDS ORDERED: HALOPERIDOL LACTATE 5 MG/ML INJ VIAL IV PRN (10:15)
[2025-01-01] MEDS: DONNATAL 5ml ORAL Elix (BELLADONNA ALK-PHENOBARB) PO ONE (10:15)
[2025-01-01] MEDS: SODIUM CHLORIDE 0.9% 1,000 ML IVB ONE (10:38)
[2025-01-01 10:42] LABS: Hematocrit 49.3 % (41.0-53.0); Hemoglobin 16.3 g/dL (13.5-17.5); Mean Corpuscular Hemoglobin 29.1 pg (28.0-32.0); Mean Corpuscular Volume 87.9 fL (80.0-100.0); Nucleated Red Blood Cells % 0.0 %
[2025-01-01 10:50] LABS: Chloride 103 mmol/L (98-107); Potassium 4.7 mmol/L (3.5-5.1); Sodium 140 mmol/L (136-145)
[2025-01-01 10:51] LABS: Anion Gap 15 (5-15); Carbon Dioxide 22 mmol/L (20-31)
[2025-01-01 10:52] LABS: Calcium 10.2 mg/dL (8.7-10.4)
[2025-01-01 10:57] LABS: BUN/Creatinine Ratio 8.8 (10.0-20.0); Blood Urea Nitrogen 10 mg/dL (9-23); Lipase 38 U/L (12-53); Magnesium 1.8 mg/dL (1.6-2.6)
[2025-01-01 11:00] LABS: Glucose 231 mg/dL (74-106)
[2025-01-01] MEDS: HALOPERIDOL LACTATE 5 MG/ML INJ VIAL IM ONE (11:13)
[2025-01-01] MEDS: MAALOX PLUS or MAALOX 30 ML PO ONE (12:06)
[2025-01-01 14:12] LABS: Urine Protein, UAD TRACE (Negative)
[2025-01-01 14:31] LABS: Amphetamine Screen, Urine Neg (NEGATIVE); Barbiturate Scree,Urine Neg (NEGATIVE); Benzodiazephine Screen, Urine Neg (NEGATIVE); Cannabinoid Screen, Urine Pos (NEGATIVE); Cocaine Screen, Urine Neg (NEGATIVE); Opiate Scree,Urine Neg (NEGATIVE); Phencyclidine Screen, Urine Neg (NEGATIVE)
[2025-01-01] MEDS ORDERED: ALUMCHW6 PO (16:04)
[2025-01-01 16:09] VITALS: BP 132/63; PULSE 75; RESP 17; TEMP 98; O2SAT 100
== END 2025-01-01 16:35 | disposition home or self-care (01) ==
LOC: ER 09:11
DX: R10.13 Epigastric pain (principal); R10.20 Pelvic and perineal pain unspecified side; R11.16 Cannabis hyperemesis syndrome; E11.9 Type 2 diabetes mellitus without complications; F17.200 Nicotine dependence, unspecified, uncomplicated; Z90.49 Acquired absence of other specified parts of digestive tract
CPT/HCPCS: 36415; 80048; 80307; 81001; 83690; 83735; 85025; 96360; 96361; 96372; 99284; J1630; J7030